=== PATIENT | female | born 1945 | race Caucasian/White ===

== ENCOUNTER 2016-12-12 12:02 | Inpatient (IN) | payer MEDICARE, MEDICAID ==
[~2016-12-12] VITALS: Ht 165.1 cm; Wt 80.7 kg
[2016-12-12] VITALS (9 sets, daily range): BP systolic 136–164; BP diastolic 69–83
[~2016-12-12 12:02] MED LIST: CIPRO500 MG PO; IBUPROFEN600 MG ORAL; NORCO 5-325 TA1 EACH ORAL; NORCO 5-325 TA1 EACH PO; PHENAZOPYRIDIN100 MG PO; UNOBMED
[2016-12-12] MEDS ORDERED: OMEPRAZOLE20 M2 ORAL (12:23)
[2016-12-12] MEDS ORDERED: SIMVASTATIN40 MG ORAL (12:23)
[2016-12-12] MEDS ORDERED: DYRENIUM100 MG PO (12:23)
[2016-12-12] MEDS ORDERED: TUMS500 MG ORAL (12:23)
[2016-12-12] MEDS ORDERED: METOPROLOL SUC100 MG ORAL (12:23)
[2016-12-12 12:40] LABS: BASOPHILS % (AUTO) 1.2 % (0.0-2.0); EOSINOPHILS % (AUTO) 1.5 % (0.0-3.0); LYMPHOCYTES % (AUTO) 30.5 % (20.0-45.0); MEAN CORPUSCULAR HEMOGLOBIN 30.8 PG (27.0-31.0); MEAN CORPUSCULAR HGB CONC 32.9 G/DL (32.0-36.0); MEAN CORPUSCULAR VOLUME 94 FL (80-99); MEAN PLATELET VOLUME 9.9 FL (6.5-10.1); MONOCYTES % (AUTO) 10.2 % (1.0-10.0); NEUTROPHILS % (AUTO) 56.6 % (45.0-75.0); PLATELET COUNT 217 K/UL (150-450); RED BLOOD COUNT 4.82 M/UL (4.20-5.40); RED CELL DISTRIBUTION WIDTH 11.7 % (11.6-14.8); WHITE BLOOD COUNT 8.5 K/UL (4.8-10.8)
[2016-12-12 12:52] LABS: ALANINE AMINOTRANSFERASE 21 U/L (3-33); ALBUMIN/GLOBULIN RATIO 1.4 (1.0-2.7); ANION GAP 16 (5-15); ASPARTATE AMINO TRANSFERASE 22 U/L (5-40); CALCIUM 9.2 mg/dL (8.6-10.2); CARBON DIOXIDE 26 mEQ/L (20-30); CHLORIDE 95 mEQ/L (98-107); CHOLESTEROL 225 mg/dL (< 200); CHOLESTEROL/HDL RATIO 6.8 (3.3-4.4); CREATININE 1.1 mg/dL (0.5-0.9); HEMOLYSIS 9; LDL CHOLESTEROL (CALC.) 120 mg/dL (60-99); POTASSIUM 3.7 mEQ/L (3.4-4.9); SODIUM 137 mEQ/L (135-145); TOTAL PROTEIN 6.9 g/dL (6.6-8.7)
[2016-12-12 14:14] LABS: APPEARANCE,URINE CLEAR; KETONES,URINE NEGATIVE (NEGATIVE); LEUKOCYTE ESTERASE ,URINE NEGATIVE (NEGATIVE); NITRITE,URINE NEGATIVE (NEGATIVE); PH,URINE 6.5 (4.5-8.0); PROTEIN,URINE NEGATIVE (NEGATIVE); UROBILINOGEN,URINE NORMAL MG/DL (0.0-1.0)
--- NOTE | 2016-12-12 14:30 | Emergency Room Report ---
History of Present Illness General Chief Complaint: Stroke Symptoms Source: Patient Present Illness HPI 71-year-old woman with a history of hypertension, high cholesterol, hepatitis C , with treatment and fatty liver. No diabetes, no history of heart disease or history of CVA. Patient reports that sudden onset at home she had right-sided numbness, this included her face, arm, torso and leg. She also had significant dizziness. No ringing in her ears no pain in her ears reported. She denied chest pain, shortness of breath or nausea or vomiting. She actually drove herself to the ER. Her primary doctor is located at [facility], she takes medications for high blood pressure and states she is compliant. No history of stroke or TIA, no history of carotid stenosis, a history of atrial fibrillation or irregular heart rate. Patient denies chest pain, or neck or back pain. Allergies: Coded Allergies: No Known Allergies (Unverified , 11/20/12) Patient History Past Medical History: see triage record Social History: Denies: alcohol use, drug use, smoking Now: No Immunizations: UTD Reviewed Nursing Documentation: PMH: Agreed Nursing Documentation-PMH Past Medical History: No History, Except For Hx Hypertension: Yes Hx Gastrointestinal Problems: Yes - Hepatitis C Review of Systems Cardiovascular: Denies: chest pain Neurological: Reports: dizziness, numbness, paresthesia, Denies: focal weakness , headache, seizure, syncope, tingling, tremors All Other Systems: negative except mentioned in HPI Physical Exam Vital Signs Date Time Temp Pulse Resp B/P Pulse Ox O2 Delivery O2 Flow Rate FiO2 12/12/16 12:12 97.5 76 16 160/83 97 Room Air Sp02 EP Interpretation: reviewed, normal General Appearance: normal inspection, well appearing, no apparent distress, alert Head: atraumatic Eyes: bilateral eye normal inspection ENT: normal ENT inspection, hearing grossly normal, normal voice Neck: normal inspection, full range of motion, supple, no bony tend Respiratory: normal inspection, lungs clear, normal breath sounds, no respiratory distress, no retraction, no wheezing Cardiovascular #1: regular rate, rhythm, no edema Gastrointestinal: normal inspection, normal bowel sounds, non tender, soft, no guarding, no hernia Genitourinary: no CVA tenderness Musculoskeletal: normal inspection, back normal, normal range of motion Neurologic: normal inspection, alert, oriented x3, responsive, 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 With consistent dizziness, review of the patient's overall exam does not show nystagmus but there is some degree of possible TM irritation of the left ear. An acute MRI of the brain does not reveal obvious stroke. And initial laboratory examination is generally unremarkable except for high cholesterol. She does have risk factors to include hypertension and high cholesterol and I believe a TIA still a possibility. Patient probably should be admitted for continued observation, carotid evaluation and further workup and she'll receive aspirin as well as a statin in the ER. The patient's primary doctor's for seizures and no contact them, we have 30 page 1 center pending a call back. But at this time I believe she's not having an acute stroke but no bulging event could always occur. Patient will be admitted to telemetry service here or transferred to [facility] if the primary doctor contacts us. The patient's orthostatics did not demonstrate a change in blood pressure or hydrated but the patient was dizzy on standing. I spoke with pts automobile brake bonder pcp, dr. Patel, who agrees with admission for TIA, but there is no available bed a [facility] at this time. I spoke with family and provided the option of following up with pcp tomorrow, or admission to [facility] for additional work up. Dr. Damon was notified and will admit the patient for futher evaluation. Pt received asa and statin in the ED. Review of labs shows only mild elevation in cholesterol, normal electrolytes and no sign of UTI. Laboratory Tests Test 12/12/16 12:04 12/12/16 12:10 12/12/16 13:47 White Blood Count 8.5 K/UL (4.8-10.8) Red Blood Count 4.82 M/UL (4.20-5.40) Hemoglobin 14.8 G/DL (12.0-16.0) Hematocrit 45.2 % (37.0-47.0) Mean Corpuscular Volume 94 FL (80-99) Mean Corpuscular Hemoglobin 30.8 PG (27.0-31.0) Mean Corpuscular Hemoglobin Concent 32.9 G/DL (32.0-36.0) Red Cell Distribution Width 11.7 % (11.6-14.8) Platelet Count 217 K/UL (150-450) Mean Platelet Volume 9.9 FL (6.5-10.1) Neutrophils (%) (Auto) 56.6 % (45.0-75.0) Lymphocytes (%) (Auto) 30.5 % (20.0-45.0) Monocytes (%) (Auto) 10.2 % (1.0-10.0) H Eosinophils (%) (Auto) 1.5 % (0.0-3.0) Basophils (%) (Auto) 1.2 % (0.0-2.0) Prothrombin Time 10.0 SEC (9.30-11.50) Prothromb Time International Ratio 1.0 (0.9-1.1) Activated Partial Thromboplast Time 30 SEC (23-33) Sodium Level 137 mEQ/L (135-145) Potassium Level 3.7 mEQ/L (3.4-4.9) Chloride Level 95 mEQ/L (98-107) L Carbon Dioxide Level 26 mEQ/L (20-30) Anion Gap 16 (5-15) H Blood Urea Nitrogen 19 mg/dL (7-23) Creatinine 1.1 mg/dL (0.5-0.9) H Estimat Glomerular Filtration Rate mL/min (>60) Glucose Level 115 mg/dL (74-106) H Calcium Level 9.2 mg/dL (8.6-10.2) Total Bilirubin 0.4 mg/dL (0.0-1.2) Aspartate Amino Transf (AST/SGOT) 22 U/L (5-40) Alanine Aminotransferase (ALT/SGPT) 21 U/L (3-33) Alkaline Phosphatase 52 U/L (35-104) Total Protein 6.9 g/dL (6.6-8.7) Albumin 4.1 g/dL (3.5-5.2) Globulin 2.8 g/dL Albumin/Globulin Ratio 1.4 (1.0-2.7) Triglycerides Level 360 mg/dL (< 150) H Cholesterol Level 225 mg/dL (< 200) H LDL Cholesterol 120 mg/dL (60-99) H HDL Cholesterol 33 mg/dL (> 60) Cholesterol/HDL Ratio 6.8 (3.3-4.4) H Urine Color Pale yellow Urine Appearance Clear Urine pH 6.5 (4.5-8.0) Urine Specific [place] 1.010 (1.005-1.035) Urine Protein Negative (NEGATIVE) Urine Glucose (UA) Negative (NEGATIVE) Urine Ketones Negative (NEGATIVE) Urine Occult Blood Negative (NEGATIVE) Urine Nitrite Negative (NEGATIVE) Urine Bilirubin Negative (NEGATIVE) Urine Urobilinogen Normal MG/DL (0.0-1.0) Urine Leukocyte Esterase Negative (NEGATIVE) EKG Diagnostic Results EKG Time: 13:08 EP Interpretation: normal sinus rhythm, normal ecg, rate 65 Rate: normal Rhythm: NSR ST Segments: no acute changes ASA given to the pt in ED: Yes Rhythm Strip Diag. Results Rhythm Strip Time: 13:20 EP Interpretation: yes Rate: 70 Rhythm: NSR, no PVC's, no ectopy CT/MRI/US Diagnostic Results CT/MRI/US Diagnostic Results : Imaging Test Ordered: MRI brain w.o contrast Impression No mass, bleeding, sign of stroke. age appropriate atrophy was noted. Reevaluation Time: 14:30 Last Vital Signs Date Time Temp Pulse Resp B/P Pulse Ox O2 Delivery O2 Flow Rate FiO2 12/12/16 13:30 68 16 143/79 98 Room Air 12/12/16 12:12 97.5 Status: improved Disposition: ADMITTED INPATIENT Admit Decision Time: 14:22 Condition: Serious Referrals: NON PHYSICIAN (PCP) Perez Hess MD Dec 12, 2016 14:30
--- NOTE | 2016-12-12 19:11 | Consultation ---
Consult Note Consult Note NEUROLOGY CONSULTATION: Full note dictated #[id number] 71 y/o, RH, CF with PH of HTN and DL who was functioning well until this morning when she felt dizzy and then her entire right body felt numb. Since then she has had multiple episodes of right body numbness. ON EXAM: Problems with recent and remote memory. Subjective altered sensation over entire right body. MRI of brain normal. IMPRESSION: Possible left brain stroke with residual right body dysesthesias. REC: BP control. Lipid control Plavix 75 mg q day Carotid duplex Cardiac monitoring. Observe. Gabe Rolle M.D., M.S.P.GABE KRISHNAMURTHY Dec 12, 2016 19:11
[2016-12-12 21:26] LABS: HEMOGLOBIN A1C 5.6 % (< 6.0)
--- NOTE | 2016-12-12 22:29 | Consultation ---
DATE OF CONSULTATION: 12/12/2016 NEUROLOGY CONSULTATION CONSULTING PHYSICIAN: Aurelio Rolle M.D. REQUESTING PHYSICIAN: Chel Lowery M.D. HISTORY: Ms. Darleen Argueta is a 71-year-old, right-handed lady, who does have a past history of hypertension, dyslipidemia, and Hepatitis-C. She was functioning relatively well until the morning of 12/12/16 when she was in the garden and felt dizzy. Then, her entire right body felt numb. She was quite uncomfortable from this and as a result of that, presented to the [facility] Emergency Room. Since then, she has had multiple episodes of the right body feeling numb and these episodes of numbness usually lasts from a few minutes to 30 minutes at a time. She denies any associated weakness. When she sits, stands, or tries to walk she does feel a little dizzy for a few seconds and then the dizziness seems to go away. She denies any similar symptoms in the past. PAST MEDICAL HISTORY: Significant for hypertension, dyslipidemia, and hepatitis C, which has been treated. FAMILY HISTORY: Mother of a heart attack and stroke. PERSONAL HISTORY: Home: She lives alone. 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 Habits: She smoked for approximately 20 years in the past, but stopped smoking numerous years ago. She used to drink in excess in the past, but stopped drinking numerous years ago. There is no history of any illicit drug use. PRESENT MEDICATIONS: Include aspirin 81 mg daily, Tylenol, and she got a single dose of Lipitor in the emergency room. PHYSICAL EXAMINATION: GENERAL: She is a well-developed, well-nourished, slightly obese, lady, lying in bed, in no acute distress. VITAL SIGNS: Pulse 64 per minute and regular, blood pressure 136/83 mmHg, respirations 21 per minute, and temperature 97.7 degrees Fahrenheit. HEAD: Normocephalic and atraumatic. NECK: No neck rigidity was observed. EENT EXAMINATION: Benign. NEUROLOGICAL EXAMINATION: MENTAL STATUS EXAMINATION: He was alert and awake. She was oriented to person, place, and time. She was able to recall 3/3 words immediately, but could only remember 2/3 words in 1 minute and 3 minutes even on the second trial. She was able to remember presidents Trump and Obama, but could not remember presidents prior to that. Her mathematical skills were fairly good. Her visuospatial function was impaired. SPEECH: She had no dysarthria. LANGUAGE: She had no aphasia. CRANIAL NERVE EXAMINATION: II: The visual hampton were intact to confrontation testing. III, IV & : The external ocular movements were full and the pupils 3 mm in diameter equal, round, regular and reactive to light. V: The temporales, masseters, and pterygoids function normally. She was able to discern pinprick and light touch, but complained of a subjective alteration over entire right face. VII: She had normal facial expressions and no facial asymmetry. VIII: She was able to hear well bilaterally and had no nystagmus. IX: The palate moved symmetrically on phonation. X: She had no hoarseness of voice. XI: The sternocleidomastoids and trapezii functioned normally. XII: The tongue was in the midline without any fasciculations or atrophy. MOTOR SYSTEM: The tone was normal in all four extremities. Examination of muscle mass revealed no focal wasting. Examination of power revealed grade 5/5 power in all muscle groups tested. SENSORY EXAMINATION: She complained of altered sensations over entire right body. She was, however, able to discern between pinprick and light touch. REFLEXES: 2+ and bilaterally symmetrical at the biceps, triceps, brachioradialis, and knees. 0 at both ankles. The plantar responses were flexor bilaterally. COORDINATION: She performed well on [id number]-[id number]-cnmo and mpdj-lg-pxbv testing. STANCE: She stood up with support. GAIT: She walked well with support. DIAGNOSTIC IMPRESSION: 1. Ms. Darleen Argueta is a 71-year-old, right-handed, lady, who does have a past history of hypertension and dyslipidemia, who was taking medicines for hypertension, but not dyslipidemia. On the morning of 12/12/2016 she felt dizzy and then her entire right body felt numb. She was evaluated in the [facility] emergency room for this problem. Since then, she has had multiple episodes of right body numbness, which last for a few minutes to 30 minutes at a time. 2. On neurological examination, at this time, she does have problems with recent and remote memory, and a subjective alteration to pinprick and light touch over entire right body. 3. The MRI scan of the brain without contrast reveals atrophy and deep white matter disease, but no acute pathology. 4. The patient's history and neurological examination are most compatible with a possible left brain cerebrovascular event with residual right body altered sensation and episodic dysesthesias. RECOMMENDATIONS: 1. Agree with management thus far. 2. The patient should be worked up thoroughly for other treatable causes of cerebrovascular disease. 3. Her blood pressure should be well controlled with permitting. 4. She should be started on a statin on a consistent basis for treatment of dyslipidemia. 5. She will be started on Plavix 75 mg daily for stroke prophylaxis. 6. A cerebrovascular noninvasive profile should be performed to evaluate the patient for hemodynamically significant carotid disease. 7. The patient's heart should be monitored for the next 24 hours or so to evaluate her for a cardiac arrhythmia. 8. The patient should be observed closely and depending on how she fares over the next day or so further recommendations will be given. Thank you for entrusting me with the care of Ms. Argueta. I shall follow her with you. Aurelio Rolle M.D., M.S.P.H. DR: TARSHA JOB#: [id number] MTDFroilan
[2016-12-13 00:26] VITALS: BP 152/84
[2016-12-13 04:23] VITALS: BP 137/78
[2016-12-13 07:49] VITALS: BP 150/80
--- NOTE | 2016-12-13 07:55 | Diagnostic Imaging Report ---
Indication: Strokelike symptoms. Left candida-comparison is Technique: The head was imaged in a 1.5 Faviola magnet. Sequences obtained include sagittal and axial T1 FLAIR, axial T2 fast spin echo with fat saturation, axial T2 FLAIR, diffusion and ADC map. Comparison: None Findings: There is mild prominence of the sulci, ventricles, and basal cisterns consistent with atrophy. Mild, nonspecific T2 hyperintensity noted within white matter. This may be due to chronic small vessel disease. There is no restricted diffusion. Steven-white differentiation is normal. There is no mass effect, midline shift, edema, or hemorrhage. There are no abnormal extra-axial or intra-axial fluid collections. The corpus callosum and sella are unremarkable. The brainstem and cerebellum are unremarkable. Bone marrow signal within the visualized osseous structures appears age appropriate and unremarkable otherwise. Impression: No acute intracranial findings. Mild atrophy and evidence of chronic small vessel disease involving white matter tracts.
[2016-12-13] MEDS: Aspirin Baby 81mg ORAL SCH (08:56)
[2016-12-13 12:36] VITALS: BP 145/77
--- NOTE | 2016-12-13 15:51 | Neurology Progress Note ---
Interim History Interim History Interim History Ms. Argueta feels better generally. She has had no vertigo. She still has altered sensations over her right body but has had no further episodes of increased altered sensations. The strength is good. The memory is stable. She denies any new new neurologic symptoms. Review of Systems Neuro Review of Systems Benign. Objective Physical Exam Last Vital Signs Date Time Temp Pulse Resp B/P Pulse Ox O2 Delivery O2 Flow Rate FiO2 12/13/16 12:36 97.9 65 18 145/77 95 Room Air Laboratory Tests Test 12/12/16 21:00 12/13/16 06:05 Erythrocyte Sedimentation Rate 23 MM/HR (0-30) Hemoglobin A1c 5.6 % (< 6.0) Vitamin B12 Level 308 pg/mL (211-946) Vitamin D 25-Hydroxy Pending 25-Hydroxy Vitamin D2 Pending 25-Hydroxy Vitamin D3 Pending Folate Pending Rapid Plasma Reagin Pending Neurologic Exam Objective PHYSICAL EXAMINATION: GENERAL: She is a well-developed, well-nourished, slightly obese, lady, lying in bed, in no acute distress. HEAD: Normocephalic and atraumatic. NECK: No neck rigidity was observed. EENT EXAMINATION: Benign. NEUROLOGICAL EXAMINATION: MENTAL STATUS EXAMINATION: He was alert and awake. She was oriented to person, place, and time. She was able to recall 3/3 words immediately, but could only remember 2/3 words in 1 minute and 3 minutes even on the second trial. She was able to remember presidents Trump and Obama, but could not remember presidents prior to that. Her mathematical skills were fairly good. Her visuospatial function was impaired. SPEECH: She had no dysarthria. LANGUAGE: She had no aphasia. CRANIAL NERVE EXAMINATION: II: The visual hampton were intact to confrontation testing. III, IV & : The external ocular movements were full and the pupils 3 mm in diameter equal, round, regular and reactive to light. V: The temporales, masseters, and pterygoids function normally. She was able to discern pinprick and light touch, but complained of a subjective alteration over entire right face. VII: She had normal facial expressions and no facial asymmetry. VIII: She was able to hear well bilaterally and had no nystagmus. IX: The palate moved symmetrically on phonation. X: She had no hoarseness of voice. XI: The sternocleidomastoids and trapezii functioned normally. XII: The tongue was in the midline without any fasciculations or atrophy. MOTOR SYSTEM: The tone was normal in all four extremities. Examination of muscle mass revealed no focal wasting. Examination of power revealed grade 5/5 power in all muscle groups tested. SENSORY EXAMINATION: She complained of altered sensations over entire right body. She was, however, able to discern between pinprick and light touch. REFLEXES: 2+ and bilaterally symmetrical at the biceps, triceps, brachioradialis , and knees. 0 at both ankles. The plantar responses were flexor bilaterally. COORDINATION: She performed well on pmllfo-cp-imez and qasa-ei-fbob testing. STANCE: She stood up with support. GAIT: She walked well with support. Impression/Recommendations Diagnostic Impression 1. Ms. Darleen Argueta is a 71-year-old, right-handed, lady, who does have a past history of hypertension and dyslipidemia, who was taking medicines for hypertension, but not dyslipidemia. On the morning of 12/12/2016 she felt dizzy and then her entire right body felt numb. She was evaluated in the [facility] emergency room for this problem. Since then, she has had multiple episodes of right body numbness, which last for a few minutes to 30 minutes at a time. 2. She feels better today. She still has a constant subjective alteration in sensations over her right body but no episodes of increased right sided discomfort. 3. On neurological examination, at this time, she does have problems with recent and remote memory, and a subjective alteration to pinprick and light touch over entire right body. 4. The MRI scan of the brain without contrast reveals atrophy and deep white matter disease, but no acute pathology. 5. Her B 12 level is low at 308. 6. Her carotid duplex has been done but the results are still pending. 7. The patient's history and neurological examination are most compatible with a possible left brain cerebrovascular event with residual right body altered sensation and episodic dysesthesias. 8. She is also vitamin B 12 deficient. Recommendations 1. Continue present management. 2. Vitamin B12 - 1000 mcg SC daily x 3 doses and then q month. 3. Her blood pressure should be well controlled and kept in the <130/90 range. 4. She should be started on a statin on a consistent basis for treatment of dyslipidemia. 5. Continue Plavix 75 mg daily for stroke prophylaxis. 6. Await results of cerebrovascular noninvasive profile to evaluate the patient for hemodynamically significant carotid disease. 7. Keep active. Gabe Rolle M.D., M.S.P.Angely. GABE ROLLE Dec 13, 2016 15:51
[2016-12-13 16:00] VITALS: BP 111/52
[2016-12-13] MEDS: Vitamin B12 1000mcg/ml Inj SUBQ SCH (18:23)
[2016-12-13 20:00] VITALS: BP 148/77
--- NOTE | 2016-12-13 20:58 | History and Physical Report ---
DATE OF ADMISSION: 12/12/2016 REASON FOR ADMISSION: TIA. HISTORY OF PRESENT ILLNESS: The patient complains of numbness in the right side since yesterday, ataxia, visual blurring, headache, paresthesia in the fingers, and headache x1 day. Everything started yesterday. The patient has been admitted with TIA, rule out CVA. The patient denies nausea, vomiting, or diarrhea. No fever or chills. No abdominal pain. No shortness of breath. No cough. PAST MEDICAL HISTORY: Significant for history of alcohol abuse, history of smoking, GERD, hyperlipidemia, and hypertension. MEDICATIONS: Simvastatin, triamterene, omeprazole, and metoprolol. SOCIAL HISTORY: History of smoking. History of alcohol abuse. No history of drug abuse. FAMILY HISTORY: Noncontributory. REVIEW OF SYSTEMS: HEENT: Denies headache. Respiratory: Denies shortness of breath. Denies cough. Cardiovascular: Denies chest pain. Denies orthopnea. Gastrointestinal: Denies nausea, vomiting, or diarrhea. Extremities: Denies pain. Central Nervous System: Has paresthesia in the right side x1 day, headache, and visual blurriness x1 day. PHYSICAL EXAMINATION: VITAL SIGNS: Temperature 98.6 degrees, pulse is 88, and blood pressure 152/84. HEENT: PERRLA. NECK: Supple. No lymphadenopathy. CHEST: Clear to auscultation. GASTROINTESTINAL: Soft, nontender, and nondistended. No organomegaly. EXTREMITIES: No edema. Moving all four extremities. NEUROLOGIC: Sensory intact to light touch. Reflexes equal on both sides. Motor 5/5 in all extremities. LABORATORY DATA: WBC of 8.5, hemoglobin 14.8, and platelets 217,000. Sodium 137, potassium 3.7, BUN 19, creatinine 1.9, and glucose of 115. LDL 120. ASSESSMENT: 1. Hyperlipidemia. 2. Transient ischemic attack, rule out cerebrovascular accident. 3. Dehydration. PLAN: I have asked Dr. Villeda, , and Dr. Alcantar to see the patient to rule out UTI as well as continue the treatment of dehydration and TIA/stroke. Chel Lowery M.D. DR: ALEXIS JOB#: [id number] CC:
--- NOTE | 2016-12-13 23:23 | Cardiology Report ---
APPROVED REPORT EKG Measurement Heart [id number] Normal sinus rhythm Normal ECG
[2016-12-14 00:05] VITALS: BP 144/83
[2016-12-14 04:31] VITALS: BP 131/78
[2016-12-14 08:25] VITALS: BP 153/89
[2016-12-14] MEDS: Aspirin Baby 81mg ORAL SCH (08:41)
[2016-12-14] MEDS: Vitamin B12 1000mcg/ml Inj SUBQ SCH (08:41)
--- NOTE | 2016-12-14 08:46 | Cardiology Report ---
APPROVED REPORT EXAM: Two-dimensional and M-mode echocardiogram with Doppler and color Doppler. INDICATION CVA M-Mode DIMENSIONS IVSd0.8 (0.7-1.1cm)Left Atrium (MM)2.9 (1.6-4.0cm) LVDd4.5 (3.5-5.6cm)Aortic Root2.5 (2.0-3.7cm) PWd0.7 (0.7-1.1cm)Aortic Cusp Exc.1.8 (1.5-2.0cm) LVDs2.7 (2.5-4.0cm) PWs0.7 cm Technically difficult study due to poor acoustic windows. Normal left ventricular chamber size, systolic function and wall motion. Left ventricular ejection fraction estimated to be 55-60 %. No evidence of left ventricular hypertrophy. No evidence of pericardial fat or effusion. All other cardiac chamber sizes are within normal limits. Focal aortic valve sclerosis with adequate cusp excursion Thickened mitral valve leaflets with normal excursion. Mild mitral annulus and aortic root calcification. Pulmonic valve not well visualized. Normal tricuspid valve structure. IVC is normal in size with physiologic collapse. A color flow and spectral Doppler study was performed and revealed: Trace aortic regurgitation. Mild mitral regurgitation. Left ventricular diastolic dysfunction grade 1. Mild tricuspid regurgitation. Tricuspid systolic velocities suggests peak right ventricular systolic pressure of 23 mmHg
[2016-12-14 11:32] LABS: BASOPHILS % (AUTO) 0.9 % (0.0-2.0); EOSINOPHILS % (AUTO) 1.4 % (0.0-3.0); LYMPHOCYTES % (AUTO) 23.6 % (20.0-45.0); MEAN CORPUSCULAR HGB CONC 33.1 G/DL (32.0-36.0); MEAN CORPUSCULAR VOLUME 94 FL (80-99); MEAN PLATELET VOLUME 9.9 FL (6.5-10.1); MONOCYTES % (AUTO) 8.8 % (1.0-10.0); NEUTROPHILS % (AUTO) 65.3 % (45.0-75.0); PLATELET COUNT 165 K/UL (150-450); RED BLOOD COUNT 4.41 M/UL (4.20-5.40); RED CELL DISTRIBUTION WIDTH 11.9 % (11.6-14.8); WHITE BLOOD COUNT 6.1 K/UL (4.8-10.8)
[2016-12-14 11:49] LABS: ALANINE AMINOTRANSFERASE 17 U/L (3-33); ALBUMIN/GLOBULIN RATIO 1.5 (1.0-2.7); ANION GAP 13 (5-15); ASPARTATE AMINO TRANSFERASE 18 U/L (5-40); CALCIUM 8.9 mg/dL (8.6-10.2); CARBON DIOXIDE 27 mEQ/L (20-30); CHLORIDE 101 mEQ/L (98-107); CHOLESTEROL 189 mg/dL (< 200); CHOLESTEROL/HDL RATIO 5.6 (3.3-4.4); CREATININE 0.8 mg/dL (0.5-0.9); CRP QUANT 0.4 mg/dL (< 0.5); HEMOLYSIS 7; LDL CHOLESTEROL (CALC.) 120 mg/dL (60-99); MAGNESIUM 1.9 mg/dL (1.7-2.5); PHOSPHORUS 2.2 mg/dL (2.5-4.8); POTASSIUM 3.5 mEQ/L (3.4-4.9); SODIUM 141 mEQ/L (135-145); TOTAL PROTEIN 6.4 g/dL (6.6-8.7); URIC ACID 6.2 mg/dL (3.0-7.5)
[2016-12-14 11:51] VITALS: BP 147/75
--- NOTE | 2016-12-14 12:27 | Diagnostic Imaging Report ---
APPROVED REPORT CPT Code: 95474 Vascular Symptoms CVA/TIA: Doppler Spectral Velocity Analysis RightLeft BILATERAL: CCA/BULB - Imaging reveals irregular, minimal plaque(5%) in both carotid carotid arteries. The Doppler spectral flow analysis is within normal limits throughout the internal and external carotid arteries. VERTEBRALS - Imaging reveals both vertebral arteries to be patent, without evidence of stenosis or steal.
--- NOTE | 2016-12-14 12:28 | Consultation ---
Consult Note Consult Note asked to eval for BP management- 71 y old female: 1. Ms. Darleen Argueta is a 71-year-old, right-handed, lady, who does have a past history of hypertension and dyslipidemia, who was taking medicines for hypertension, but not dyslipidemia. On the morning of 12/12/2016 she felt dizzy and then her entire right body felt numb. She was evaluated in the [facility] emergency room for this problem. Since then, she has had multiple episodes of right body numbness, which last for a few minutes to 30 minutes at a time. 2. She feels better today. She still has a constant subjective alteration in sensations over her right body but no episodes of increased right sided discomfort. 3. On neurological examination, at this time, she does have problems with recent and remote memory, and a subjective alteration to pinprick and light touch over entire right body. 4. The MRI scan of the brain without contrast reveals atrophy and deep white matter disease, but no acute pathology. 5. Her B 12 level is low at 308. 6. Her carotid duplex has been done but the results are still pending. 7. The patient's history and neurological examination are most compatible with a possible left brain cerebrovascular event with residual right body altered sensation and episodic dysesthesias. 8. She is also vitamin B 12 deficient. Patient interviewed, discussed with daughter - data reviewed Assessment/Plan Status: HTN High Cholestrol Evidence of left brain cereberal event Sugg: Norvasc 5 BID Up dose Lipitor to 20 mg QHS B12 per neuro EMELY JETER Dec 14, 2016 12:28
[2016-12-14] MEDS: Phospha 250 Neutral tab ORAL SCH ×2 (13:41→17:54)
--- NOTE | 2016-12-14 14:39 | General Progress Note ---
Assessment/Plan Problem List: (1) Dizziness ICD Codes: R42 - Dizziness and giddiness SNOMED: 746445061, 182120793 (2) Stroke-like symptoms ICD Codes: R29.90 - Unspecified symptoms and signs involving the nervous system SNOMED: 679183821, 824423719 (3) Stroke-like episode ICD Codes: I63.9 - Cerebral infarction, unspecified SNOMED: 359251738 Status: progressing Assessment/Plan tia moniter for progression to cva still has elevated bp Subjective Allergies: Coded Allergies: No Known Allergies (Unverified , 11/20/12) Subjective tingling Objective Last 24 Hour Vital Signs Date Time Temp Pulse Resp B/P Pulse Ox O2 Delivery O2 Flow Rate FiO2 12/14/16 12:00 63 12/14/16 11:51 97.7 73 18 147/75 98 Room Air 12/14/16 10:46 85 169/80 12/14/16 08:25 97.5 65 18 153/89 96 Room Air 12/14/16 08:00 68 12/14/16 04:31 97.5 81 19 131/78 98 Room Air 12/14/16 04:00 64 12/14/16 00:05 98.1 72 18 144/83 98 Room Air 12/14/16 00:00 63 12/13/16 20:00 98.1 67 20 148/77 97 Room Air 12/13/16 20:00 72 12/13/16 16:00 70 12/13/16 16:00 98.1 67 20 111/52 97 Room Air Intake and Output 12/13/16 12/14/16 19:00 07:00 Intake Total 750 ml 260 ml Balance 750 ml 260 ml Intake Oral 240 ml 260 ml IV Total 510 ml # Voids 2 1 Laboratory Tests 12/14/16 10:50: White Blood Count 6.1, Red Blood Count 4.41, Hemoglobin 13.7, Hematocrit 41.3, Mean Corpuscular Volume 94, Mean Corpuscular Hemoglobin 31.0, Mean Corpuscular Hemoglobin Concent 33.1, Red Cell Distribution Width 11.9, Platelet Count 165, Mean Platelet Volume 9.9, Neutrophils (%) (Auto) 65.3, Lymphocytes (%) (Auto) 23.6, Monocytes (%) (Auto) 8.8, Eosinophils (%) (Auto) 1.4, Basophils (%) (Auto ) 0.9, Sodium Level 141, Potassium Level 3.5, Chloride Level 101, Carbon Dioxide Level 27, Anion Gap 13, Blood Urea Nitrogen 13, Creatinine 0.8, Estimat Glomerular Filtration Rate , Glucose Level 111H, Uric Acid 6.2, Calcium Level 8.9, Phosphorus Level 2.2L, Magnesium Level 1.9, Total Bilirubin 0.5, Gamma Glutamyl Transpeptidase 21, Aspartate Amino Transf (AST/SGOT) 18, Alanine Aminotransferase (ALT/SGPT) 17, Alkaline Phosphatase 45, Total Creatine Kinase 49, C-Reactive Protein, Quantitative 0.4, Pro-B-Type Natriuretic Peptide 170H, Total Protein 6.4L, Albumin 3.9, Globulin 2.5, Albumin/Globulin Ratio 1.5, Triglycerides Level 177H, Cholesterol Level 189, LDL Cholesterol 120H, HDL Cholesterol 34, Cholesterol/HDL Ratio 5.6H, Thyroid Stimulating Hormone (TSH) 2.430 Height (Feet): 5 Height (Inches): 5.00 Weight (Pounds): 178 Cardiovascular: normal rate Respiratory/Chest: lungs clear Abdomen: soft Chel Lowery MD Dec 14, 2016 14:39
[2016-12-14 16:00] VITALS: BP 148/73
[2016-12-14 20:00] VITALS: BP 143/79
--- NOTE | 2016-12-14 20:52 | Neurology Progress Note ---
Interim History Interim History Interim History Ms. Argueta feels better generally. Her blood pressures are still running high. This morning she had a fleeting episode of increased right body numbness associated with vertigo. She still has altered sensations over her face but not the right arm or leg. The strength is good. The memory is stable. She denies any new new neurologic symptoms. Review of Systems Neuro Review of Systems Benign. Objective Physical Exam Last Vital Signs Date Time Temp Pulse Resp B/P Pulse Ox O2 Delivery O2 Flow Rate FiO2 12/14/16 17:58 81 148/77 12/14/16 16:00 98.1 21 97 Room Air Laboratory Tests Test 12/14/16 10:50 White Blood Count 6.1 K/UL (4.8-10.8) Red Blood Count 4.41 M/UL (4.20-5.40) Hemoglobin 13.7 G/DL (12.0-16.0) Hematocrit 41.3 % (37.0-47.0) Mean Corpuscular Volume 94 FL (80-99) Mean Corpuscular Hemoglobin 31.0 PG (27.0-31.0) Mean Corpuscular Hemoglobin Concent 33.1 G/DL (32.0-36.0) Red Cell Distribution Width 11.9 % (11.6-14.8) Platelet Count 165 K/UL (150-450) Mean Platelet Volume 9.9 FL (6.5-10.1) Neutrophils (%) (Auto) 65.3 % (45.0-75.0) Lymphocytes (%) (Auto) 23.6 % (20.0-45.0) Monocytes (%) (Auto) 8.8 % (1.0-10.0) Eosinophils (%) (Auto) 1.4 % (0.0-3.0) Basophils (%) (Auto) 0.9 % (0.0-2.0) Sodium Level 141 mEQ/L (135-145) Potassium Level 3.5 mEQ/L (3.4-4.9) Chloride Level 101 mEQ/L (98-107) Carbon Dioxide Level 27 mEQ/L (20-30) Anion Gap 13 (5-15) Blood Urea Nitrogen 13 mg/dL (7-23) Creatinine 0.8 mg/dL (0.5-0.9) Estimat Glomerular Filtration Rate mL/min (>60) Glucose Level 111 mg/dL (74-106) H Uric Acid 6.2 mg/dL (3.0-7.5) Calcium Level 8.9 mg/dL (8.6-10.2) Phosphorus Level 2.2 mg/dL (2.5-4.8) L Magnesium Level 1.9 mg/dL (1.7-2.5) Total Bilirubin 0.5 mg/dL (0.0-1.2) Gamma Glutamyl Transpeptidase 21 U/L (5-36) Aspartate Amino Transf (AST/SGOT) 18 U/L (5-40) Alanine Aminotransferase (ALT/SGPT) 17 U/L (3-33) Alkaline Phosphatase 45 U/L (35-104) Total Creatine Kinase 49 U/L (26-140) C-Reactive Protein, Quantitative 0.4 mg/dL (< 0.5) Pro-B-Type Natriuretic Peptide 170 pg/mL (0-125) H Total Protein 6.4 g/dL (6.6-8.7) L Albumin 3.9 g/dL (3.5-5.2) Globulin 2.5 g/dL Albumin/Globulin Ratio 1.5 (1.0-2.7) Triglycerides Level 177 mg/dL (< 150) H Cholesterol Level 189 mg/dL (< 200) LDL Cholesterol 120 mg/dL (60-99) H HDL Cholesterol 34 mg/dL (> 60) Cholesterol/HDL Ratio 5.6 (3.3-4.4) H Thyroid Stimulating Hormone (TSH) 2.430 uIU/mL (0.300-4.500) Neurologic Exam Objective PHYSICAL EXAMINATION: GENERAL: She is a well-developed, well-nourished, slightly obese, lady, lying in bed, in no acute distress. HEAD: Normocephalic and atraumatic. NECK: No neck rigidity was observed. EENT EXAMINATION: Benign. NEUROLOGICAL EXAMINATION: MENTAL STATUS EXAMINATION: He was alert and awake. She was oriented to person, place, and time. She was able to recall 3/3 words immediately, but could only remember 2/3 words in 1 minute and 3 minutes even on the second trial. She was able to remember presidents Trump and Obama, but could not remember presidents prior to that. Her mathematical skills were fairly good. Her visuospatial function was impaired. SPEECH: She had no dysarthria. LANGUAGE: She had no aphasia. CRANIAL NERVE EXAMINATION: II: The visual hampton were intact to confrontation testing. III, IV & : The external ocular movements were full and the pupils 3 mm in diameter equal, round, regular and reactive to light. V: The temporales, masseters, and pterygoids function normally. She was able to discern pinprick and light touch, but complained of a subjective alteration over entire right face. VII: She had normal facial expressions and no facial asymmetry. VIII: She was able to hear well bilaterally and had no nystagmus. IX: The palate moved symmetrically on phonation. X: She had no hoarseness of voice. XI: The sternocleidomastoids and trapezii functioned normally. XII: The tongue was in the midline without any fasciculations or atrophy. MOTOR SYSTEM: The tone was normal in all four extremities. Examination of muscle mass revealed no focal wasting. Examination of power revealed grade 5/5 power in all muscle groups tested. SENSORY EXAMINATION: She was able to discern between pinprick and light touch. She had no alteration of sensation over her right body. REFLEXES: 2+ and bilaterally symmetrical at the biceps, triceps, brachioradialis , and knees. 0 at both ankles. The plantar responses were flexor bilaterally. COORDINATION: She performed well on [id number] and [id number] testing. STANCE: She stood up with support. GAIT: She walked well with support. Impression/Recommendations Diagnostic Impression 1. Ms. Darleen Argueta is a 71-year-old, right-handed, lady, who does have a past history of hypertension and dyslipidemia, who was taking medicines for hypertension, but not dyslipidemia. On the morning of 12/12/2016 she felt dizzy and then her entire right body felt numb. She was evaluated in the [facility] emergency room for this problem. Since then, she has had multiple episodes of right body numbness, which last for a few minutes to 30 minutes at a time. 2. She feels much better now. She did have an episode of increased subjective alteration in sensations over her right body this morning. 3. On neurological examination, at this time, she does have problems with recent and remote memory, and a subjective alteration to pinprick and light touch over right face. 4. The MRI scan of the brain without contrast reveals atrophy and deep white matter disease, but no acute pathology. 5. Her B 12 level is low at 308. 6. Her carotid duplex reveals 5% bilateral ICA stenosis. 7. The patient's history and neurological examination are most compatible with a possible left brain cerebrovascular event with residual right body altered sensation and episodic dysesthesias. 8. She is also vitamin B 12 deficient. Recommendations 1. Continue present management. 2. Vitamin B12 - 1000 mcg SC daily x 3 doses and then q month. 3. Her blood pressure should be well controlled and kept in the <130/90 range. 4. Continue Lipitor for dyslipidemia. 5. Continue Plavix 75 mg daily for stroke prophylaxis. 6. Keep active. Gabe Rolle M.D., M.S.P.GABE KRISHNAMURTHY Dec 14, 2016 20:52
[2016-12-14] MEDS: Atorvastatin 20mg tab ORAL SCH (21:27)
[2016-12-15 00:35] VITALS: BP 117/63
[2016-12-15 04:20] VITALS: BP 124/77
[2016-12-15] MEDS: Phospha 250 Neutral tab ORAL SCH (08:19)
[2016-12-15] MEDS: Aspirin Baby 81mg ORAL SCH (08:19)
[2016-12-15] MEDS: Vitamin B12 1000mcg/ml Inj SUBQ SCH (08:22)
[2016-12-15 08:38] VITALS: BP 125/71
--- NOTE | 2016-12-15 09:24 | General Progress Note ---
Assessment/Plan Status: stable - from renal stand Assessment/Plan status: HTN High Cholestrol Evidence of left brain cereberal event Sugg: Norvasc 5 BID controlling BP Up dose Lipitor to 20 mg QHS B12 per neuro ? DC? Subjective ROS Limited/Unobtainable: No Constitutional: Reports: malaise Allergies: Coded Allergies: No Known Allergies (Unverified , 11/20/12) Objective Last 24 Hour Vital Signs Date Time Temp Pulse Resp B/P Pulse Ox O2 Delivery O2 Flow Rate FiO2 12/15/16 08:38 97.5 64 18 125/71 98 Room Air 12/15/16 08:21 64 125/71 12/15/16 04:20 98.6 72 19 124/77 94 Room Air 12/15/16 04:00 65 12/15/16 02:00 77 12/15/16 00:35 98.3 73 19 117/63 98 Room Air 12/14/16 20:00 98.1 79 21 143/79 96 Room Air 12/14/16 20:00 82 12/14/16 17:58 81 148/77 12/14/16 16:00 73 12/14/16 16:00 98.1 69 21 148/73 97 Room Air 12/14/16 12:00 63 12/14/16 11:51 97.7 73 18 147/75 98 Room Air 12/14/16 10:46 85 169/80 Intake and Output 12/14/16 12/15/16 19:00 07:00 Intake Total 240 ml 300 ml Balance 240 ml 300 ml Intake Oral 240 ml 300 ml # Voids 3 3 Laboratory Tests 12/14/16 10:50: White Blood Count 6.1, Red Blood Count 4.41, Hemoglobin 13.7, Hematocrit 41.3, Mean Corpuscular Volume 94, Mean Corpuscular Hemoglobin 31.0, Mean Corpuscular Hemoglobin Concent 33.1, Red Cell Distribution Width 11.9, Platelet Count 165, Mean Platelet Volume 9.9, Neutrophils (%) (Auto) 65.3, Lymphocytes (%) (Auto) 23.6, Monocytes (%) (Auto) 8.8, Eosinophils (%) (Auto) 1.4, Basophils (%) (Auto ) 0.9, Sodium Level 141, Potassium Level 3.5, Chloride Level 101, Carbon Dioxide Level 27, Anion Gap 13, Blood Urea Nitrogen 13, Creatinine 0.8, Estimat Glomerular Filtration Rate , Glucose Level 111H, Uric Acid 6.2, Calcium Level 8.9, Phosphorus Level 2.2L, Magnesium Level 1.9, Total Bilirubin 0.5, Gamma Glutamyl Transpeptidase 21, Aspartate Amino Transf (AST/SGOT) 18, Alanine Aminotransferase (ALT/SGPT) 17, Alkaline Phosphatase 45, Total Creatine Kinase 49, C-Reactive Protein, Quantitative 0.4, Pro-B-Type Natriuretic Peptide 170H, Total Protein 6.4L, Albumin 3.9, Globulin 2.5, Albumin/Globulin Ratio 1.5, Triglycerides Level 177H, Cholesterol Level 189, LDL Cholesterol 120H, HDL Cholesterol 34, Cholesterol/HDL Ratio 5.6H, Thyroid Stimulating Hormone (TSH) 2.430 Height (Feet): 5 Height (Inches): 5.00 Weight (Pounds): 178 General Appearance: no apparent distress Cardiovascular: normal rate Respiratory/Chest: lungs clear Abdomen: soft Objective physical exam not changed EMELY JETER Dec 15, 2016 09:24
[2016-12-15 11:39] VITALS: BP 121/68
--- NOTE | 2016-12-15 11:54 | General Progress Note ---
Assessment/Plan Problem List: (1) Dizziness ICD Codes: R42 - Dizziness and giddiness SNOMED: 989994564, 306817015 (2) Stroke-like symptoms ICD Codes: R29.90 - Unspecified symptoms and signs involving the nervous system SNOMED: 555612477, 492985003 (3) Stroke-like episode ICD Codes: I63.9 - Cerebral infarction, unspecified SNOMED: 347868890 Status: progressing Assessment/Plan spoke w daughter and she is also in agreement that patient needs to go to snf for pt ot and st will dc to snf tomrrow moniter for progression to cva still has elevated bp Subjective Allergies: Coded Allergies: No Known Allergies (Unverified , 11/20/12) Subjective tingling Objective Last 24 Hour Vital Signs Date Time Temp Pulse Resp B/P Pulse Ox O2 Delivery O2 Flow Rate FiO2 12/15/16 11:39 97.3 77 18 121/68 96 Room Air 12/15/16 08:38 97.5 64 18 125/71 98 Room Air 12/15/16 08:21 64 125/71 12/15/16 08:00 75 12/15/16 04:20 98.6 72 19 124/77 94 Room Air 12/15/16 04:00 65 12/15/16 02:00 77 12/15/16 00:35 98.3 73 19 117/63 98 Room Air 12/14/16 20:00 98.1 79 21 143/79 96 Room Air 12/14/16 20:00 82 12/14/16 17:58 81 148/77 12/14/16 16:00 73 12/14/16 16:00 98.1 69 21 148/73 97 Room Air 12/14/16 12:00 63 Intake and Output 12/14/16 12/15/16 19:00 07:00 Intake Total 240 ml 300 ml Balance 240 ml 300 ml Intake Oral 240 ml 300 ml # Voids 3 3 Height (Feet): 5 Height (Inches): 5.00 Weight (Pounds): 178 Cardiovascular: normal rate Abdomen: soft Chel Lowery MD Dec 15, 2016 11:54
--- NOTE | 2016-12-15 15:31 | Neurology Progress Note ---
Interim History Interim History Interim History Ms. Argueta feels better. Her blood pressures are controlled. She has had no further episodes of increased right body numbness or vertigo. She still has altered sensations over her right face, arm and leg. The strength is good. The memory is stable. She denies any new new neurologic symptoms. Review of Systems Neuro Review of Systems Benign. Objective Physical Exam Last Vital Signs Date Time Temp Pulse Resp B/P Pulse Ox O2 Delivery O2 Flow Rate FiO2 12/15/16 12:00 76 12/15/16 11:39 97.3 18 121/68 96 Room Air Neurologic Exam Objective PHYSICAL EXAMINATION: GENERAL: She is a well-developed, well-nourished, slightly obese, lady, sitting up in bed, in no acute distress. HEAD: Normocephalic and atraumatic. NECK: No neck rigidity was observed. EENT EXAMINATION: Benign. NEUROLOGICAL EXAMINATION: MENTAL STATUS EXAMINATION: He was alert and awake. She was oriented to person, place, and time. She was able to recall 3/3 words immediately, but could only remember 2/3 words in 1 minute and 3 minutes even on the second trial. She was able to remember presidents Trump and Obama, but could not remember presidents prior to that. Her mathematical skills were fairly good. Her visuospatial function was impaired. SPEECH: She had no dysarthria. LANGUAGE: She had no aphasia. CRANIAL NERVE EXAMINATION: II: The visual hampton were intact to confrontation testing. III, IV & : The external ocular movements were full and the pupils 3 mm in diameter equal, round, regular and reactive to light. V: The temporales, masseters, and pterygoids function normally. She was able to discern pinprick and light touch, but complained of a subjective alteration over entire right face. VII: She had normal facial expressions and no facial asymmetry. VIII: She was able to hear well bilaterally and had no nystagmus. IX: The palate moved symmetrically on phonation. X: She had no hoarseness of voice. XI: The sternocleidomastoids and trapezii functioned normally. XII: The tongue was in the midline without any fasciculations or atrophy. MOTOR SYSTEM: The tone was normal in all four extremities. Examination of muscle mass revealed no focal wasting. Examination of power revealed grade 5/5 power in all muscle groups tested. SENSORY EXAMINATION: She was able to discern between pinprick and light touch. She complained of a subjective alteration of sensation over her right body. REFLEXES: 2+ and bilaterally symmetrical at the biceps, triceps, brachioradialis , and knees. 0 at both ankles. The plantar responses were flexor bilaterally. COORDINATION: She performed well on [id number] and [id number] testing. STANCE: She stood up with support. GAIT: She walked well with support. Impression/Recommendations Diagnostic Impression 1. Ms. Darleen Argueta is a 71-year-old, right-handed, lady, who does have a past history of hypertension and dyslipidemia, who was taking medicines for hypertension, but not dyslipidemia. On the morning of 12/12/2016 she felt dizzy and then her entire right body felt numb. She was evaluated in the [facility] emergency room for this problem. Since then, she has had multiple episodes of right body numbness, which last for a few minutes to 30 minutes at a time. 2. She continues to feel much better. She continues to have a subjective alteration in sensations over her right body. 3. On neurological examination, at this time, she does have problems with recent and remote memory, and a subjective alteration to pinprick and light touch over right face, arm and leg. 4. The MRI scan of the brain without contrast reveals atrophy and deep white matter disease, but no acute pathology. 5. Her B 12 level is low at 308. 6. Her carotid duplex reveals 5% bilateral ICA stenosis. 7. The patient's history and neurological examination are most compatible with a possible left brain cerebrovascular event with residual right body altered sensation and episodic dysesthesias. 8. She is also vitamin B 12 deficient. Recommendations 1. Continue present management. 2. Vitamin B12 - 1000 mcg SC daily x 3 doses and then q month. 3. Her blood pressure should be well controlled and kept in the <130/90 range. 4. Continue Lipitor for dyslipidemia. 5. Continue Plavix 75 mg daily for stroke prophylaxis. 6. Keep active. Gabe Rolle M.D., M.S.P.GABE KRISHNAMURTHY Dec 15, 2016 15:31
[2016-12-15 16:00] VITALS: BP 111/59
[2016-12-15] MEDS ORDERED: Milk of Magnesia 30ml Ud ORAL PRN (18:15)
[2016-12-15] MEDS: Docusate 100mg cap ORAL SCH (18:47)
[2016-12-15 20:00] VITALS: BP 111/66
[2016-12-15] MEDS: Atorvastatin 20mg tab ORAL SCH (20:13)
[2016-12-16] VITALS: BP 109/56
[2016-12-16 04:00] VITALS: BP 121/70
[2016-12-16 08:00] VITALS: BP 120/65
[2016-12-16 08:08] LABS: VITAMIN D 25-OH TOTAL 25 ng/mL (.)
[2016-12-16] MEDS: Docusate 100mg cap ORAL SCH (08:35)
[2016-12-16] MEDS: Aspirin Baby 81mg ORAL SCH (08:35)
[2016-12-16 08:38] VITALS: BP 120/65
[2016-12-16] MEDS: Vitamin B12 1000mcg/ml Inj SUBQ SCH (08:39)
[2016-12-16] MEDS ORDERED: Tubing IV Secondary IV ONE (10:25)
--- NOTE | 2016-12-16 11:29 | General Progress Note ---
Assessment/Plan Problem List: (1) Dizziness ICD Codes: R42 - Dizziness and giddiness SNOMED: 889616493, 432925338 (2) Stroke-like symptoms ICD Codes: R29.90 - Unspecified symptoms and signs involving the nervous system SNOMED: 710622523, 718324171 (3) Stroke-like episode ICD Codes: I63.9 - Cerebral infarction, unspecified SNOMED: 112980960 Status: progressing Assessment/Plan spoke w daughter and she is also in agreement that patient going to snf today pt agreed to snf Subjective Constitutional: Reports: no symptoms Allergies: Coded Allergies: No Known Allergies (Unverified , 11/20/12) Subjective tingling Objective Last 24 Hour Vital Signs Date Time Temp Pulse Resp B/P Pulse Ox O2 Delivery O2 Flow Rate FiO2 12/16/16 08:38 77 120/65 12/16/16 08:05 76 12/16/16 08:00 97.7 77 18 120/65 97 Room Air 12/16/16 04:00 97.8 75 18 121/70 98 Room Air 12/16/16 04:00 95 12/16/16 00:00 88 12/16/16 00:00 98.4 84 18 109/56 97 Room Air 12/15/16 20:00 97.9 77 20 111/66 98 Room Air 12/15/16 19:10 87 12/15/16 17:29 80 111/59 12/15/16 16:00 82 12/15/16 16:00 97.7 80 21 111/59 98 Room Air 12/15/16 12:00 76 12/15/16 11:39 97.3 77 18 121/68 96 Room Air Intake and Output 12/15/16 12/16/16 19:00 07:00 Intake Total 240 ml 550 ml Balance 240 ml 550 ml Intake Oral 240 ml 550 ml # Voids 2 3 Height (Feet): 5 Height (Inches): 5.00 Weight (Pounds): 178 EENT: PERRL/EOMI Neck: supple Cardiovascular: normal rate Respiratory/Chest: lungs clear Chel Lowery MD Dec 16, 2016 11:29
[2016-12-16] MEDS ORDERED: 1/2 NS 1000ml IV ONE (12:06)
--- NOTE | 2016-12-16 14:03 | General Progress Note ---
Assessment/Plan Status: stable Status Narrative BP improved Assessment/Plan status: HTN High Cholestrol Evidence of left brain cereberal event Sugg: Norvasc 5 BID controlling BP Up dose Lipitor to 20 mg QHS B12 per neuro OK for DC- FU BP as Out Patient Subjective Date patient seen: Dec 16, 2016 Time patient seen: 10:00 ROS Limited/Unobtainable: No Allergies: Coded Allergies: No Known Allergies (Unverified , 11/20/12) Objective Last 24 Hour Vital Signs Date Time Temp Pulse Resp B/P Pulse Ox O2 Delivery O2 Flow Rate FiO2 12/16/16 08:38 77 120/65 12/16/16 08:05 76 12/16/16 08:00 97.7 77 18 120/65 97 Room Air 12/16/16 04:00 97.8 75 18 121/70 98 Room Air 12/16/16 04:00 95 12/16/16 00:00 88 12/16/16 00:00 98.4 84 18 109/56 97 Room Air 12/15/16 20:00 97.9 77 20 111/66 98 Room Air 12/15/16 19:10 87 12/15/16 17:29 80 111/59 12/15/16 16:00 82 12/15/16 16:00 97.7 80 21 111/59 98 Room Air Intake and Output 12/15/16 12/16/16 19:00 07:00 Intake Total 240 ml 550 ml Balance 240 ml 550 ml Intake Oral 240 ml 550 ml # Voids 2 3 Height (Feet): 5 Height (Inches): 5.00 Weight (Pounds): 178 General Appearance: no apparent distress Objective physical exam not changed EMELY JETER Dec 16, 2016 14:03
[2016-12-19] MEDS ORDERED: PLAVIX75 MG ORAL (07:54)
[2016-12-19] MEDS ORDERED: AMLODIPINE BESYL5 MG ORAL (07:54)
--- NOTE | 2016-12-19 08:00 | Discharge Summary ---
Discharge Summary Hospital Course Date of Admission Dec 12, 2016 at 14:06 Date of Discharge Dec 16, 2016 at 12:07 Admitting Diagnosis TIA HPI Darleen Argueta is a 71 year old female who was admitted on Dec 12, 2016 at 14: 06 for Transient Ischemic Attack Hospital Course dc summary #[id number] Discharge Medications New Medications: Amlodipine Besylate* (Amlodipine Besylate*) 5 Mg Tablet 5 MG ORAL DAILY, #30 TAB Clopidogrel Bisulfate* (Plavix*) 75 Mg Tablet 75 MG ORAL DAILY, #30 TAB Continued Medications: Calcium Carbonate (Calcium) 600 Mg Tablet 600 MG ORAL BID PRN for HEARTBURN, #30 TAB 0 Refills Omeprazole (Omeprazole) 20 Mg Capsule.dr 20 MG ORAL DAILY, CAP Simvastatin (Zocor) 40 Mg Tablet 40 MG ORAL BEDTIME, TAB Triamterene (Dyrenium) 100 Mg Capsule 75 MG PO DAILY, CAP Discharge Condition Upon Discharge: stable Discharge Disposition Patient was discharged to SNF/Subacute Facility(03) Discharge Diagnoses: Discharge Instructions Discharge Instructions Special Instructions I have been assigned to complete a D/C Summary on this account. I was not involved in the patient management Natalie uDke NP (Vanchtein) Dec 19, 2016 08:00
--- NOTE | 2016-12-19 10:48 | Discharge Summary 2 SIG ---
DATE OF ADMISSION: 12/12/2016 DATE OF DISCHARGE: 12/16/2016 REASON FOR ADMISSION: 71-year-old female presented with a complaint of right-sided numbness on the face, arm, torso and the leg . After numbness started, the patient became dizzy. She drove herself to the emergency room for evaluation. She denied chest pain or shortness of breath. No history of cerebrovascular accident or carotid stenosis in the past. No history of atrial fibrillation. EKG showed normal sinus rhythm. She denied ringing in the ears. No recent upper respiratory infection. No change in hearing. No headache, No falls. No trauma. CT of the head was done in the emergency room and was negative. Lipid panel revealed elevated total cholesterol, LDL, and triglyceride. Blood pressure was elevated. Electrolytes were stable. No leukocytosis. The patient was admitted for further management. ADMITTING DIAGNOSES: 1. Stroke like symptoms. 2. Dizziness. 3. Hypertension. HOSPITAL STAY: The patient was admitted to monitored floor. Telemetry showed sinus rhythm. No evidence of arrhythmia. Troponin was negative. Lipid panel was repeated ( since initial was not fasting), still demonstrated elevated triglycerides, elevated total cholesterol and LDL. The patient was started on the statin. Blood pressure was managed with calcium channel frederic and was stable. Neurologist seen and evaluated the patient. Subsequently, ordered MRI of the brain. MRI of the brain without contrast revealed atrophy and deep white matter disease but no acute pathology. However, per Neurology, the patient's history and neurological examination were most compatible with a possible left brain cerebrovascular event with a residual right body altered sensation and episodic dysesthesia. Plavix and statin were added to the existing regimen. Fall precautions were maintained. The patient was working with physical and occupational therapists. Therapists recommended short-term [facility] facility for rehabilitation. DISCHARGE DIAGNOSES: 1. 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 2. Hypertension. 3. Mixed hyperlipidemia. 4. Dizziness, resolved. DISCHARGE MEDICATIONS: See medication reconciliation list. DISCHARGE INSTRUCTIONS: The patient was discharged to the [facility] facility for PT, OT and short-term rehab. Ali Hadadz, M.D. I have been assigned to dictate discharge summary on this account and I was not involved in the patient's management. Natalie Duke N.P. (Vanchtein) DR: JANIE JOB#: [id number] CC: TERESA
== END 2016-12-16 12:07 | DRG 66 ==
LOC: EMR 12:42 → 2E 14:06 → EDBEDREQ 14:52
DX: I63.9 Cerebral infarction, unspecified (principal); E86.0 Dehydration; E53.8 Deficiency of other specified B group vitamins; E78.5 Hyperlipidemia, unspecified; I10 Essential (primary) hypertension; R20.8 Other disturbances of skin sensation; E78.2 Mixed hyperlipidemia; Z86.19 Personal history of other infectious and parasitic diseases; Z87.891 Personal history of nicotine dependence
CPT/HCPCS: 36415; 70551; 80053; 80061; 81003; 82306; 82550; 82607; 82746; 82962; 82977; 83036; 83735; 83880; 84100; 84443; 84550; 85025; 85610; 85651; 85730; 86140; 86592; 93005; 93306; 93880; C9399; J2405; J8499

== ENCOUNTER 2016-12-17 18:04 | Emergency (ER) | payer MEDICARE, MEDICAID ==
[~2016-12-17] VITALS: Ht 165.1 cm; Wt 81.6 kg
[~2016-12-17 18:04] MED LIST changes: +DYRENIUM100 MG PO; +METOPROLOL SUC100 MG ORAL; +OMEPRAZOLE20 M2 ORAL; +SIMVASTATIN40 MG ORAL; +TUMS500 MG ORAL
--- NOTE | 2016-12-17 18:09 | Emergency Room Report ---
History of Present Illness General Chief Complaint: Constipation Source: Patient, EMS Present Illness HPI Patient is a 71-year-old female who presented after having increased abdominal distention and decreased bowel movements. Patient recently been hospitalized for CVA/TIA. Patient was noted to have had no bowel movement for the past 3 days. Patient was sent in from group home by her primary care physician for further evaluation. Patient had not been having fever. The patient been vomiting. Allergies: Coded Allergies: No Known Allergies (Unverified , 11/20/12) Patient History Past Medical History: see triage record Reviewed Nursing Documentation: PMH: Agreed, PSxH: Agreed Nursing Documentation-PM Past Medical History: No History, Except For Hx Hypertension: Yes Hx Asthma: Yes - 5 years Hx Cancer: No Hx Gastrointestinal Problems: Yes Hx Seizures: No Hx Head Trauma: Yes - Aug 2016 hit left side of head, post fall from stairs Hx Memory Loss: Yes - onset 4years ago Hx Numbness: Yes - right sided numbness Hx Fatigue: Yes Review of Systems All Other Systems: negative except mentioned in HPI Physical Exam Vital Signs Date Time Temp Pulse Resp B/P Pulse Ox O2 Delivery O2 Flow Rate FiO2 12/17/16 17:58 98.2 90 18 174/83 96 Room Air Sp02 EP Interpretation: reviewed, normal General Appearance: normal inspection, well appearing, no apparent distress, alert, GCS 15 Head: atraumatic ENT: normal ENT inspection, hearing grossly normal, normal voice Neck: normal inspection, full range of motion, supple, no bony tend Respiratory: normal inspection, lungs clear, normal breath sounds, no respiratory distress, no retraction, no wheezing Cardiovascular #1: regular rate, rhythm, no edema Gastrointestinal: normal inspection, normal bowel sounds, non tender, soft, no guarding, no hernia Genitourinary: no CVA tenderness Musculoskeletal: normal inspection, back normal, normal range of motion Neurologic: speech normal Psychiatric: normal inspection, judgement/insight normal, mood/affect normal Skin: normal inspection, normal color, no rash Medical Decision Making Diagnostic Impression: Primary Impression: Constipation Additional Impression: Hypertension ER Course Patient presented for abdominal pain. Differential diagnoses included ischemic bowel, appendicitis, perforated viscus, abdominal aortic aneurysm, inferior myocardial infarction, viral gastroenteritis Because of complexity of patient's case laboratory testing and imaging studies were ordered. CT imaging of the abdomen pelvis read by radiology showed no evidence of bowel obstruction. There is some fluid loops of bowel consistent with possible enteritis. The patient was given oral Norvasc.Patient was discharged back to group home. Nursing staff were advised her return precautions. The patient was transferred home by ambulance. Labs Test 12/17/16 18:29 12/17/16 19:20 12/17/16 20:10 White Blood Count 7.5 K/UL (4.8-10.8) Red Blood Count 4.81 M/UL (4.20-5.40) Hemoglobin 14.9 G/DL (12.0-16.0) Hematocrit 44.8 % (37.0-47.0) Mean Corpuscular Volume 93 FL (80-99) Mean Corpuscular Hemoglobin 31.0 PG (27.0-31.0) Mean Corpuscular Hemoglobin Concent 33.3 G/DL (32.0-36.0) Red Cell Distribution Width 11.9 % (11.6-14.8) Platelet Count 178 K/UL (150-450) Mean Platelet Volume 9.8 FL (6.5-10.1) Neutrophils (%) (Auto) 61.6 % (45.0-75.0) Lymphocytes (%) (Auto) 24.6 % (20.0-45.0) Monocytes (%) (Auto) 10.5 % (1.0-10.0) Eosinophils (%) (Auto) 2.0 % (0.0-3.0) Basophils (%) (Auto) 1.3 % (0.0-2.0) Total Bilirubin 0.5 mg/dL (0.0-1.2) Aspartate Amino Transf (AST/SGOT) 37 U/L (5-40) Alanine Aminotransferase (ALT/SGPT) 21 U/L (3-33) Alkaline Phosphatase 50 U/L (35-104) Troponin I < 0.30 ng/mL (<=0.30) Total Protein 7.4 g/dL (6.6-8.7) Albumin 4.0 g/dL (3.5-5.2) Globulin 3.4 g/dL Albumin/Globulin Ratio 1.1 (1.0-2.7) Lipase 34 U/L (< 60) Urine Color Pale yellow Urine Appearance Clear Urine pH 8 (4.5-8.0) Urine Specific [place] 1.015 (1.005-1.035) Urine Protein Negative (NEGATIVE) Urine Glucose (UA) Negative (NEGATIVE) Urine Ketones Negative (NEGATIVE) Urine Occult Blood Negative (NEGATIVE) Urine Nitrite Negative (NEGATIVE) Urine Bilirubin Negative (NEGATIVE) Urine Urobilinogen Normal MG/DL (0.0-1.0) Urine Leukocyte Esterase Negative (NEGATIVE) Sodium Level 137 mEQ/L (135-145) Potassium Level 3.9 mEQ/L (3.4-4.9) Chloride Level 97 mEQ/L (98-107) Carbon Dioxide Level 27 mEQ/L (20-30) Anion Gap 13 (5-15) Blood Urea Nitrogen 9 mg/dL (7-23) Creatinine 0.8 mg/dL (0.5-0.9) Estimat Glomerular Filtration Rate mL/min (>60) Glucose Level 88 mg/dL (74-106) Calcium Level 8.8 mg/dL (8.6-10.2) Last Vital Signs Date Time Temp Pulse Resp B/P Pulse Ox O2 Delivery O2 Flow Rate FiO2 12/17/16 17:58 98.2 90 18 174/83 96 Room Air Status: improved Disposition: XFER SNF Condition: Stable Issac Fuentes Dec 17, 2016 18:09
[2016-12-17 18:33] VITALS: BP 166/78
[2016-12-17 18:38] LABS: BASOPHILS % (AUTO) 1.3 % (0.0-2.0); LYMPHOCYTES % (AUTO) 24.6 % (20.0-45.0); MEAN CORPUSCULAR HGB CONC 33.3 G/DL (32.0-36.0); MEAN CORPUSCULAR VOLUME 93 FL (80-99); MEAN PLATELET VOLUME 9.8 FL (6.5-10.1); MONOCYTES % (AUTO) 10.5 % (1.0-10.0); NEUTROPHILS % (AUTO) 61.6 % (45.0-75.0); PLATELET COUNT 178 K/UL (150-450); RED BLOOD COUNT 4.81 M/UL (4.20-5.40); RED CELL DISTRIBUTION WIDTH 11.9 % (11.6-14.8); WHITE BLOOD COUNT 7.5 K/UL (4.8-10.8)
[2016-12-17 18:54] LABS: TROPONIN I < 0.30 ng/mL (<=0.30)
[2016-12-17 18:57] LABS: ALANINE AMINOTRANSFERASE 21 U/L (3-33); ALBUMIN/GLOBULIN RATIO 1.1 (1.0-2.7); ANION GAP 15 (5-15); ASPARTATE AMINO TRANSFERASE 37 U/L (5-40); CALCIUM 8.9 mg/dL (8.6-10.2); CARBON DIOXIDE 25 mEQ/L (20-30); CHLORIDE 98 mEQ/L (98-107); CREATININE 0.8 mg/dL (0.5-0.9); HEMOLYSIS 168; LIPASE 34 U/L (< 60); SODIUM 138 mEQ/L (135-145); TOTAL PROTEIN 7.4 g/dL (6.6-8.7)
[2016-12-17 18:59] LABS: POTASSIUM 5.8 mEQ/L (3.4-4.9)
[2016-12-17 19:55] LABS: APPEARANCE,URINE CLEAR; KETONES,URINE NEGATIVE (NEGATIVE); LEUKOCYTE ESTERASE ,URINE NEGATIVE (NEGATIVE); NITRITE,URINE NEGATIVE (NEGATIVE); PH,URINE 8 (4.5-8.0); PROTEIN,URINE NEGATIVE (NEGATIVE); UROBILINOGEN,URINE NORMAL MG/DL (0.0-1.0)
[2016-12-17 20:32] LABS: ANION GAP 13 (5-15); CALCIUM 8.8 mg/dL (8.6-10.2); CARBON DIOXIDE 27 mEQ/L (20-30); CHLORIDE 97 mEQ/L (98-107); CREATININE 0.8 mg/dL (0.5-0.9); HEMOLYSIS 5; POTASSIUM 3.9 mEQ/L (3.4-4.9); SODIUM 137 mEQ/L (135-145)
[2016-12-17 20:48] VITALS: BP 142/85
[2016-12-17 21:07] VITALS: BP 142/85
[2016-12-17] MEDS ORDERED: Atorvastatin 20mg tab ORAL ONE (22:15)
--- NOTE | 2016-12-18 10:06 | Diagnostic Imaging Report ---
Indication: Abdominal pain Technique: Continuous helical transaxial imaging of the abdomen and pelvis was obtained from the lung bases to the pubic symphysis during intravenous contrast administration. Coronal 2-D reformats were also obtained. Study obtained in a Siemens sensation [address] Total Dose length Product (DLP): [address] Dose Index Volume (CTDIvol): 20 mGy Comparison: None Findings: There are fluid-filled loops of small bowel as well as large bowel. Gastroenteritis is suspected. Please correlate clinically. The appendix is seen and appears normal. Solid organs are unremarkable in appearance. There are cysts present within the left kidney. No free fluid or free air identified. Aorta is mildly calcified. Lung bases appear clear. Impression: Suspected gastroenteritis and diarrhea. Please correlate clinically Left renal cysts Atherosclerotic vascular disease Small hiatal hernia The CT scanner at [facility] is accredited by the [employer] and the scans are performed using protocols designed to limit radiation exposure to as low as reasonably achievable to attain images of sufficient resolution adequate for diagnostic evaluation.
[2016-12-19] MEDS ORDERED: PLAVIX75 MG ORAL (07:54)
[2016-12-19] MEDS ORDERED: AMLODIPINE BESYL5 MG ORAL (07:54)
== END 2016-12-17 22:10 | disposition home or self-care (01) ==
LOC: EDBD 18:04 → EMR 18:28
DX: K59.00 Constipation, unspecified (principal); I10 Essential (primary) hypertension; J45.909 Unspecified asthma, uncomplicated; Z86.73 Personal history of transient ischemic attack (TIA), and cerebral infarction without residual deficits
CPT/HCPCS: 36415; 74177; 80048; 80053; 81003; 83690; 84484; 85025; 99283; Q9967

== ENCOUNTER → 2017-01-17 | Outpatient (CLI) | payer MEDICARE, MEDICAID ==
[~2017-01-17] MED LIST changes: +AMLODIPINE BESYL5 MG ORAL; +PLAVIX75 MG ORAL
--- NOTE | 2017-01-17 15:28 | Diagnostic Imaging Report ---
Indication: PAIN Technique: 3 views left hand Comparison: 08/24/2016 Findings: There are degenerative changes of the second through fifth distal interphalangeal joints and of the fourth and fifth proximal interphalangeal joint. No acute fractures. There is a small fragment anterior to the head of the fourth proximal phalanx, with a small defect at the base of the fourth middle phalanx. These appear to be corticated, may indicate an old injury. No dislocations. The bones are osteoporotic. Impression: No acute bony trauma Degenerative changes, as described Possible old fourth middle phalangeal base fracture. Osteoporosis
== END | disposition home or self-care (01) ==
LOC: RAD 14:41
DX: M25.542 Pain in joints of left hand (principal); M81.0 Age-related osteoporosis without current pathological fracture; Z86.73 Personal history of transient ischemic attack (TIA), and cerebral infarction without residual deficits

== ENCOUNTER 2017-03-27 11:18 | Emergency (ER) | payer MEDICARE, MEDICAID ==
[~2017-03-27] VITALS: Ht 165.1 cm; Wt 78.0 kg
[2017-03-27 11:50] VITALS: BP 159/83
[2017-03-27] MEDS ORDERED: Bacitracin Oint UD TOPIC ONE (12:10)
[2017-03-27] MEDS ORDERED: TdaP Vaccine 0.5ml Syr IM ONE (12:15)
[2017-03-27 12:23] VITALS: BP 142/79
--- NOTE | 2017-03-27 15:40 | Emergency Room Report ---
History of Present Illness General Chief Complaint: Laceration Source: Patient Present Illness HPI 71-year-old female presents to ED with laceration to the left big toe. States that she dropped a mirror and some broken glass cut her foot earlier today. Notes a small laceration to her left big toe. Patient is here because she is on blood thinners he cannot stop the bleeding. Patient denies any pain. Tetanus unknown. Patient states the bleeding is now improved. Per triage patient is tachycardic. Patient states she is currently on a Holter monitor by her PMD because of the tachycardia. Denies any dizziness or weakness. Denies chest pain or shortness of breath. No other aggravating or leading factors. Denies any other associated symptoms Allergies: Coded Allergies: No Known Allergies (Unverified , 11/20/12) Patient History Past Medical History: HTN, asthma Past Surgical History: none Pertinent Family History: none Social History: Denies: alcohol use, drug use, smoking Now: No Immunizations: UTD Reviewed Nursing Documentation: PMH: Agreed, PSxH: Agreed Nursing Documentation-PMH Past Medical History: No History, Except For Hx Cardiac Problems: Yes - fatty liver, high cholesterol, heart monitor Hx Hypertension: Yes Hx Asthma: Yes - 5 years Hx Cancer: No Hx Gastrointestinal Problems: Yes Hx Cerebrovascular Accident: Yes - 2016 Hx Seizures: No Hx Head Trauma: Yes - Aug 2016 hit left side of head, post fall from stairs Hx Memory Loss: Yes - onset 4years ago Hx Numbness: Yes - right sided numbness Hx Fatigue: Yes Review of Systems All Other Systems: negative except mentioned in HPI Physical Exam Vital Signs Date Time Temp Pulse Resp B/P Pulse Ox O2 Delivery O2 Flow Rate FiO2 03/27/17 11:31 98.4 121 19 159/83 97 Room Air Sp02 EP Interpretation: reviewed, normal General Appearance: no apparent distress, alert, GCS 15, non-toxic Head: normocephalic Eyes: bilateral eye PERRL, bilateral eye normal inspection ENT: normal ENT inspection Neck: normal inspection Respiratory: normal inspection Cardiovascular #1: normal inspection Gastrointestinal: normal inspection Rectal: deferred Genitourinary: no CVA tenderness Musculoskeletal: back normal, gait/station normal, normal range of motion, non- tender Neurologic: alert, oriented x3, responsive, motor strength/tone normal, sensory intact, speech normal Psychiatric: normal inspection Skin: other - 1cm superficial laceration to dorsal aspect L big toe. no active bleeding Lymphatic: normal inspection Medical Decision Making Diagnostic Impression: Primary Impression: Laceration of toe Qualified Codes: S91.112A - Laceration without foreign body of left great toe without damage to nail, initial encounter ER Course Hospital Course 71-year-old F presents to ED s/p laceration L big toe s/p broken glass Clinical course Patient placed on stretcher. After initial history and physical I ordered tetanus shot. Wound is irrigated. There is no active bleeding. Wound is superficial. Patient would prefer not to have stitches. I do not believe patient requires suturing at this time. Steri-Strips and bacitracin and dressings applied Diagnosis - laceration of toe Stable and discharged to home. wound Care instructions given. Followup with PMD. Return to ED if any signs of infection develop Last Vital Signs Date Time Temp Pulse Resp B/P Pulse Ox O2 Delivery O2 Flow Rate FiO2 03/27/17 12:23 98.4 97 19 142/79 97 Room Air Status: improved Disposition: HOME, SELF-CARE Condition: Stable Referrals: NOT CHOSEN IPA/,REFERRING Patient Instructions: Nonsutured Laceration Care DONNA MEADOWS M.D. Mar 27, 2017 15:40
== END 2017-03-27 12:27 | disposition home or self-care (01) ==
LOC: EMR 12:00
DX: S91.112A Laceration without foreign body of left great toe without damage to nail, initial encounter (principal); Z23 Encounter for immunization; W25.XXXA Contact with sharp glass, initial encounter; Y93.9 Activity, unspecified; Y92.9 Unspecified place or not applicable; R00.0 Tachycardia, unspecified; I10 Essential (primary) hypertension; Z86.73 Personal history of transient ischemic attack (TIA), and cerebral infarction without residual deficits
CPT/HCPCS: 90471; 90715; 96372; 99283

== ENCOUNTER 2017-05-07 08:25 | Outpatient (CLI) | payer MEDICARE, MEDICAID | END 2017-05-07 10:25 | disposition home or self-care (01) | LOC: MAMMO 08:25 | DX: Z12.31 Encounter for screening mammogram for malignant neoplasm of breast (principal) | CPT/HCPCS: 77067 ==

== ENCOUNTER 2017-11-13 10:34 | Emergency (ER) | payer MEDICARE, MEDICAID ==
[~2017-11-13] VITALS: Ht 165.1 cm; Wt 72.6 kg
[2017-11-13] MEDS ORDERED: Ipratropium 0.02% Inh Soln 2.5ml UD HHN ONE (10:45)
[2017-11-13] MEDS ORDERED: Albuterol ud Inhalation HHN ONE (10:45)
--- NOTE | 2017-11-13 11:30 | Diagnostic Imaging Report ---
Indication: Shortness of breath Technique: One view of the chest Comparison: none Findings: No acute infiltrates, effusions, or congestion. Tortuous calcified aorta. Normal heart size. Upper mediastinum unremarkable. Better inspiration than on the previous exam Impression: No acute process.
--- NOTE | 2017-11-13 12:25 | Emergency Room Report ---
History of Present Illness General Chief Complaint: Flu Like Symptoms Source: Patient Present Illness HPI Patient with URI sy for 6 days. Lack of appetite. Some chest pain with cough. No flu shot. No color to phlegm. + muscle aches and some weakness. No NVD. Min sore throat. Denies pain at this time. No doc fever, but felt feverish. Somewhat better. No meds taken. According to old records, h/o asthma. No dysuria. No depression. H/O hepatitis C TIA like symptoms in past Allergies: Coded Allergies: No Known Allergies (Unverified , 11/20/12) Patient History Past Medical History: see triage record Social History: Reports: smoking - prior, alcohol use - prior Social History Narrative at home Reviewed Nursing Documentation: PMH: Agreed, PSxH: Agreed Nursing Documentation-PMH Hx Cardiac Problems: Yes - fatty liver, high cholesterol, heart monitor Hx Hypertension: Yes Hx Asthma: Yes - 5 years Hx Cancer: No Hx Gastrointestinal Problems: Yes Hx Cerebrovascular Accident: Yes - 2016 Hx Seizures: No Hx Head Trauma: Yes - Aug 2016 hit left side of head, post fall from stairs Hx Memory Loss: Yes - onset 4years ago Hx Numbness: Yes - right sided numbness Hx Fatigue: Yes Review of Systems All Other Systems: negative except mentioned in HPI Physical Exam Vital Signs Date Time Temp Pulse Resp B/P (MAP) Pulse Ox O2 Delivery O2 Flow Rate FiO2 11/13/17 10:37 98.4 88 20 135/84 99 Room Air Sp02 EP Interpretation: reviewed, normal General Appearance: well appearing, no apparent distress, GCS 15 Head: normocephalic Eyes: bilateral eye normal inspection ENT: moist mucus membranes Neck: supple Respiratory: wheezing, expiration Cardiovascular #1: regular rate, rhythm Cardiovascular #2: 2+ radial (R) Gastrointestinal: normal inspection, normal bowel sounds, non tender, no mass, non-distended Musculoskeletal: back normal, gait/station normal, normal range of motion, no calf tenderness Neurologic: alert, oriented x3, grossly normal Psychiatric: mood/affect normal Skin: normal inspection, warm/dry Medical Decision Making Diagnostic Impression: Primary Impression: URI (upper respiratory infection) Qualified Codes: J06.9 - Acute upper respiratory infection, unspecified Additional Impression: Bronchospasm ER Course Patient presents with 6 days of URI. Ddx: bronchitis, influenza, PNA, asthma exacerbation, AMI amongst others. Evaluation with EKG, CXR and influenza test. Treatment with albuterol and atrovent. EKG without injury. CXR no infiltrates. Influenza neg. Improved with treatment. Prednisone given. Patient stable for outpatient observation and treatment. Microbiology Date/Time Source Procedure Growth Status 11/13/17 10:52 Nasal Nares Influenza Types A,B Antigen (GEM) - Final Complete EKG Diagnostic Results Rate: normal Rhythm: NSR ST Segments: no acute changes Rhythm Strip Diag. Results EP Interpretation: yes Rhythm: NSR, no PVC's, no ectopy Chest X-Ray Diagnostic Results Chest X-Ray Diagnostic Results : Chest X-Ray Ordered: Yes # of Views/Limited/Complete: 1 View Indication: Other EP Interpretation: Yes Interpretation: no consolidation, no effusion, no pneumothorax Impression: No acute disease Electronically Signed by: Donis Walton MD Last Vital Signs Date Time Temp Pulse Resp B/P (MAP) Pulse Ox O2 Delivery O2 Flow Rate FiO2 11/13/17 12:49 80 18 138/86 96 Room Air 11/13/17 10:37 98.4 Status: improved Disposition: HOME, SELF-CARE Condition: Improved Scripts Guaifenesin/Codeine Phos* (ROBITUSSIN AC*) 118 Ml Liquid 5 ML ORAL Q6H Y for For Cough, #60 ML 0 Refills Prov: Donis Walton M.D. 11/13/17 Prednisone* (PREDNISONE*) 20 Mg Tablet 40 MG ORAL DAILY, #10 TAB Prov: Donis Walton M.D. 11/13/17 Referrals: NOT CHOSEN DOMINICK/,REFERRING (PCP) Donis Walton M.D. Nov 13, 2017 12:25
[2017-11-13] MEDS ORDERED: GUAIFENESIN-CO118 M1 ORAL (12:27)
[2017-11-13] MEDS ORDERED: PREDNISONE20 MG ORAL (12:27)
[2017-11-13 12:49] VITALS: BP 138/86
--- NOTE | 2017-11-14 19:03 | Cardiology Report ---
APPROVED REPORT EKG Measurement Heart [id number] Normal sinus rhythm Normal ECG
== END 2017-11-13 12:51 | disposition home or self-care (01) ==
LOC: EMR 11:22
DX: J06.9 Acute upper respiratory infection, unspecified (principal); J45.909 Unspecified asthma, uncomplicated; I10 Essential (primary) hypertension; Z86.73 Personal history of transient ischemic attack (TIA), and cerebral infarction without residual deficits; F17.200 Nicotine dependence, unspecified, uncomplicated
CPT/HCPCS: 71045; 86710; 93005; 94640; 94664; 99284; J7512

== ENCOUNTER 2017-11-16 12:44 | Inpatient (IN) | payer MEDICARE, MEDICAID ==
[~2017-11-16] VITALS: Ht 165.1 cm; Wt 75.7 kg
[~2017-11-16 12:44] MED LIST changes: +GUAIFENESIN-CO118 M1 ORAL; +PREDNISONE20 MG ORAL
[2017-11-16] MEDS ORDERED: ASPIRIN81 MG ORAL (13:20)
[2017-11-16] MEDS ORDERED: POTASSIUM CHLO20 ME2 ORAL (13:20)
[2017-11-16] MEDS ORDERED: HYDRALAZINE HCL25 M1 ORAL (13:20)
[2017-11-16] MEDS ORDERED: LOSARTAN POTASS50 MG ORAL (13:20)
[2017-11-16] MEDS ORDERED: BUPROPION XL150 MG ORAL (13:20)
[2017-11-16] MEDS ORDERED: FUROSEMIDE20 M1 ORAL (13:20)
[2017-11-16] MEDS ORDERED: Levalbuterol Inh UD 1.25mg/0.5ml HHN ONE (13:30)
[2017-11-16] MEDS ORDERED: Promethazine/Codeine 5ml UD ORAL ONE (13:30)
[2017-11-16] MEDS ORDERED: Solu-MEDROL 125mg Inj IVP ONE (13:30)
[2017-11-16 14:04] LABS: BASOPHILS % (AUTO) 0.3 % (0.0-2.0); HEMATOCRIT 40.8 % (37.0-47.0); HEMOGLOBIN 13.3 G/DL (12.0-16.0); LYMPHOCYTES % (AUTO) 12.5 % (20.0-45.0); MEAN CORPUSCULAR VOLUME 94 FL (80-99); MONOCYTES % (AUTO) 2.6 % (1.0-10.0); NEUTROPHILS % (AUTO) 84.5 % (45.0-75.0); PLATELET COUNT 211 K/UL (150-450); RED BLOOD COUNT 4.34 M/UL (4.20-5.40); RED CELL DISTRIBUTION WIDTH 12.2 % (11.6-14.8); WHITE BLOOD COUNT 8.1 K/UL (4.8-10.8)
[2017-11-16 14:13] VITALS: BP 140/74
[2017-11-16 14:16] LABS: ANION GAP 10 mmol/L (5-15); BLOOD UREA NITROGEN 17 mg/dL (7-18); CALCIUM 9.2 MG/DL (8.5-10.1); CARBON DIOXIDE 28 MMOL/L (21-32); CHLORIDE 107 MMOL/L (98-107); CREATININE 1.2 MG/DL (0.55-1.30); POTASSIUM 4.6 MMOL/L (3.5-5.1); SODIUM 145 MMOL/L (136-145)
--- NOTE | 2017-11-16 14:17 | Diagnostic Imaging Report ---
Indication: Chest pain Comparison: 11/13/2017 A single view chest radiograph was obtained. Findings: No definite infiltrate or pulmonary vascular congestion identified. The heart is normal in size. The aorta is mildly enlarged consistent with atherosclerotic vascular disease. The bones are osteopenic. Impression: No acute disease
[2017-11-16 14:29] LABS: ALANINE AMINOTRANSFERASE 35 U/L (12-78); ALBUMIN 3.7 G/DL (3.4-5.0); ALKALINE PHOSPHATASE 60 U/L (46-116); ASPARTATE AMINO TRANSFERASE 22 U/L (15-37); BILIRUBIN,TOTAL 0.4 MG/DL (0.2-1.0); CREATINE KINASE 84 U/L (26-308)
[2017-11-16 14:53] LABS: APPEARANCE,URINE CLEAR; BILIRUBIN, URINE NEGATIVE (NEGATIVE); COLOR,URINE PALE YELLOW; GLUCOSE, URINE (UA) NEGATIVE (NEGATIVE); KETONES,URINE NEGATIVE (NEGATIVE); LEUKOCYTE ESTERASE ,URINE NEGATIVE (NEGATIVE); NITRITE,URINE NEGATIVE (NEGATIVE); PH,URINE 6 (4.5-8.0); PROTEIN,URINE NEGATIVE (NEGATIVE); UROBILINOGEN,URINE NORMAL MG/DL (0.0-1.0)
--- NOTE | 2017-11-16 15:40 | History & Physical ---
History and Physical History & Physicial Vital Signs -Extended Height: 65 inches Weight: 165.5 pounds Temperature: 98.6 degrees F (oral) Pulse rate: 110 /min Pulse rhythm: regular Respirations: 12 /min Pain Level: 0 O2 Sat: 99% Blood Pressure: 163/84 mm Hg Calculations Body Mass Index: 27.64 Body Surface Area (m2): 1.83 History of Present Illness 72 Year Old Female patient presents for admission. Patient reports a dry cough with chest tightness and wheezing which has not improved. She reports coughing constantly. Patient is taking her prescribed medications as directed and is compliant. She notes she is unable to sleep due to the cough. She noted to be tachycardic. Patient not doing well. she went to the ER and evaluation notable for lactic acidosis. chest Xray is negative care discussed in detail with ER physician. Prior ER visit reviewed Active Medications (reviewed today): BREO ELLIPTA 100-25 MCG/INH INHALATION AEROSOL POWDER BREATH ACTIVATED ( FLUTICASONE FUROATE-VILANTEROL) 1 puff qd MIRALAX ORAL POWDER (POLYETHYLENE GLYCOL 3350) 1 scoop nightly FLUTICASONE PROPIONATE 50 MCG/ACT NASAL SUSPENSION (FLUTICASONE PROPIONATE) 2 spray to each nostrils daily HYDRALAZINE HCL 25 MG ORAL TABLET (HYDRALAZINE HCL) 1 tab TID PROAIR RESPICLICK 108 (90 Base) MCG/ACT INH AEPB (ALBUTEROL SULFATE) 1-2 puffs q4 prn LUZ-CARMEL 8.6 MG ORAL TABLET (SENNOSIDES) Take one tablet daily ASPIR-81 81 MG ORAL TABLET DELAYED RELEASE (ASPIRIN) 1 tab daily WELLBUTRIN XL 300 MG ORAL TABLET EXTENDED RELEASE 24 HOUR (BUPROPION HCL) 1 tab qd POTASSIUM CHLORIDE ER 20 MEQ ORAL TABLET EXTENDED RELEASE (POTASSIUM CHLORIDE) 1 tab qd PLAVIX 75 MG ORAL TABLET (CLOPIDOGREL BISULFATE) 1 tab qd for DVT prophylaxis LIPITOR 20 MG ORAL TABLET (ATORVASTATIN CALCIUM) 1 tab at bedtime for hyperlipidemia LASIX 20 MG ORAL TABLET (FUROSEMIDE) 1 by mouth every am COZAAR 100 MG ORAL TABLET (LOSARTAN POTASSIUM) 1 tab qd for HTN Current Allergies (reviewed today): No known allergies No Known Drug Allergies Past History Past Medical History (reviewed - no changes required): 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 Hypertension Hypercholesterolemia asthma hearing aids macular degeneration hx hepatitis C hx postive skin test ppd-negative xray Urgent Care and they found an ingro hair or cut under her armpid and it was infected Surgical History (reviewed - no changes required): None Family History (reviewed - no changes required): Both parents Mother-Diabetes Mellitus, Hypertension, heart disease Father- work accident brother-Diabetes Mellitus Social History (reviewed - no changes required): single;3 children; lives alone Risk Factors: Smoked Tobacco Use: Former smoker Cigarettes: Yes -- 1/4 pack(s) per day, Years smoked: 5 Year quit: 60 Caffeine use: 1 drinks per day Alcohol use: no WDWN NAD reduced breath sounds bilaterally with some wheeze [id number] tachy without MRG NABS nontender no HSM no CCE nonfocal Laboratory Tests Test 11/16/17 13:34 11/16/17 14:26 White Blood Count 8.1 K/UL (4.8-10.8) Red Blood Count 4.34 M/UL (4.20-5.40) Hemoglobin 13.3 G/DL (12.0-16.0) Hematocrit 40.8 % (37.0-47.0) Mean Corpuscular Volume 94 FL (80-99) Mean Corpuscular Hemoglobin 30.6 PG (27.0-31.0) Mean Corpuscular Hemoglobin Concent 32.6 G/DL (32.0-36.0) Red Cell Distribution Width 12.2 % (11.6-14.8) Platelet Count 211 K/UL (150-450) Mean Platelet Volume 9.4 FL (6.5-10.1) Neutrophils (%) (Auto) 84.5 % (45.0-75.0) H Lymphocytes (%) (Auto) 12.5 % (20.0-45.0) L Monocytes (%) (Auto) 2.6 % (1.0-10.0) Eosinophils (%) (Auto) 0.0 % (0.0-3.0) Basophils (%) (Auto) 0.3 % (0.0-2.0) Sodium Level 145 MMOL/L (136-145) Potassium Level 4.6 MMOL/L (3.5-5.1) Chloride Level 107 MMOL/L (98-107) Carbon Dioxide Level 28 MMOL/L (21-32) Anion Gap 10 mmol/L (5-15) Blood Urea Nitrogen 17 mg/dL (7-18) Creatinine 1.2 MG/DL (0.55-1.30) Estimat Glomerular Filtration Rate mL/min (>60) Glucose Level 142 MG/DL (74-106) H Lactic Acid Level 4.10 mmol/L (0.66-2.22) H Calcium Level 9.2 MG/DL (8.5-10.1) Total Bilirubin 0.4 MG/DL (0.2-1.0) Aspartate Amino Transf (AST/SGOT) 22 U/L (15-37) Alanine Aminotransferase (ALT/SGPT) 35 U/L (12-78) Alkaline Phosphatase 60 U/L (46-116) Total Creatine Kinase 84 U/L (26-308) Creatine Kinase MB 2.0 NG/ML (0.0-3.6) Creatine Kinase MB Relative Index 2.3 Troponin I 0.018 ng/mL (0.000-0.056) Pro-B-Type Natriuretic Peptide 145 pg/mL (0-125) H Total Protein 7.5 G/DL (6.4-8.2) Albumin 3.7 G/DL (3.4-5.0) Globulin 3.8 g/dL Albumin/Globulin Ratio 1.0 (1.0-2.7) Lipase 145 U/L (73-393) Urine Color Pale yellow Urine Appearance Clear Urine pH 6 (4.5-8.0) Urine Specific Wh[place] 1.015 (1.005-1.035) Urine Protein Negative (NEGATIVE) Urine Glucose (UA) Negative (NEGATIVE) Urine Ketones Negative (NEGATIVE) Urine Occult Blood Negative (NEGATIVE) Urine Nitrite Negative (NEGATIVE) Urine Bilirubin Negative (NEGATIVE) Urine Urobilinogen Normal MG/DL (0.0-1.0) Urine Leukocyte Esterase Negative (NEGATIVE) IMPRESSION Asthma exacerbation sinus tachycardia hypertension cough congestion PLAN IV solumedrol IV hydration resume meds empiric antibiotics DVT prophylaxis impression, plan, and exam edited and reviewed in detail care discussed with VARGHESE GIVENS Nov 16, 2017 15:40
[2017-11-16 17:24] VITALS: BP 136/69
[2017-11-16] MEDS ORDERED: Zolpidem 5mg tab ORAL PRN (19:45)
[2017-11-16] MEDS ORDERED: Tums 500mg ORAL PRN (19:45)
[2017-11-16] MEDS ORDERED: Guaifenesin/DM 10ml syrup ORAL PRN (19:45)
[2017-11-16 20:00] VITALS: BP 134/69
[2017-11-16] MEDS ORDERED: cefTRIAXone 1 GM in D5W 55 ML IVPB SCH (21:00)
[2017-11-16] MEDS: Heparin 5000 units/ml inj SUBQ SCH (21:00)
[2017-11-16] MEDS: BuPROPion XL 150mg tab ORAL SCH (21:00)
[2017-11-16] MEDS: cefTRIAXone 1 GM in NS 55 ML IVPB SCH (21:28)
[2017-11-16] MEDS: HydrALAZINE 25mg tab ORAL SCH (21:50)
[2017-11-16] MEDS: Solu-MEDROL 40mg Inj IVP SCH (21:50)
[2017-11-17] VITALS: BP 126/88
[2017-11-17 04:00] VITALS: BP 121/72
[2017-11-17] MEDS: Solu-MEDROL 40mg Inj IVP SCH ×3 (06:00→21:54)
[2017-11-17] MEDS: HydrALAZINE 25mg tab ORAL SCH ×3 (06:00→22:03)
[2017-11-17 08:00] VITALS: BP 121/67
[2017-11-17] MEDS: Losartan 50mg tab ORAL SCH (08:50)
[2017-11-17] MEDS: Aspirin Baby 81mg ORAL SCH (08:50)
[2017-11-17] MEDS: Heparin 5000 units/ml inj SUBQ SCH ×2 (08:51→21:59)
--- NOTE | 2017-11-17 10:59 | General Progress Note ---
Assessment/Plan Assessment/Plan IMPRESSION Asthma exacerbation sinus tachycardia hypertension cough congestion PLAN IV solumedrol IV hydration resume meds empiric antibiotics DVT prophylaxis dc home with home health impression, plan, and exam edited and reviewed in detail care discussed with RN Subjective Allergies: Coded Allergies: No Known Allergies (Unverified , 11/20/12) Subjective improved less sob and tachycardic Objective Last 24 Hour Vital Signs Date Time Temp Pulse Resp B/P (MAP) Pulse Ox O2 Delivery O2 Flow Rate FiO2 11/17/17 08:50 121/67 11/17/17 08:50 81 121/72 11/17/17 08:00 97.1 81 19 121/67 97 Room Air 11/17/17 08:00 85 11/17/17 04:00 97.9 81 20 121/72 97 Room Air 11/17/17 00:00 97.3 86 20 126/88 96 Room Air 11/17/17 00:00 81 11/16/17 21:50 146/76 11/16/17 20:00 81 11/16/17 20:00 97.0 83 20 134/69 99 Room Air 11/16/17 18:41 85 18 136/69 99 Room Air 11/16/17 17:24 85 18 136/69 99 Room Air 11/16/17 14:25 21 11/16/17 14:25 77 14 Room Air 21 11/16/17 14:25 77 14 99 Room Air 21 11/16/17 14:13 85 25 140/74 100 Room Air 11/16/17 12:59 98.2 112 20 158/92 95 Room Air Intake and Output 11/16/17 11/17/17 19:00 07:00 Intake Total 1150 ml Balance 1150 ml Intake Oral 150 ml IV Total 1000 ml Laboratory Tests 11/16/17 13:34: White Blood Count 8.1, Red Blood Count 4.34, Hemoglobin 13.3, Hematocrit 40.8, Mean Corpuscular Volume 94, Mean Corpuscular Hemoglobin 30.6, Mean Corpuscular Hemoglobin Concent 32.6, Red Cell Distribution Width 12.2, Platelet Count 211, Mean Platelet Volume 9.4, Neutrophils (%) (Auto) 84.5H, Lymphocytes (%) (Auto) 12.5L, Monocytes (%) (Auto) 2.6, Eosinophils (%) (Auto) 0.0, Basophils (%) (Auto ) 0.3, Sodium Level 145, Potassium Level 4.6, Chloride Level 107, Carbon Dioxide Level 28, Anion Gap 10, Blood Urea Nitrogen 17, Creatinine 1.2, Estimat Glomerular Filtration Rate , Glucose Level 142H, Lactic Acid Level 4.10H, Calcium Level 9.2, Total Bilirubin 0.4, Aspartate Amino Transf (AST/SGOT) 22, Alanine Aminotransferase (ALT/SGPT) 35, Alkaline Phosphatase 60, Total Creatine Kinase 84, Creatine Kinase MB 2.0, Creatine Kinase MB Relative Index 2.3, Troponin I 0.018, Pro-B-Type Natriuretic Peptide 145H, Total Protein 7.5, Albumin 3.7, Globulin 3.8, Albumin/Globulin Ratio 1.0, Lipase 145 11/16/17 14:26: Urine Color Pale yellow, Urine Appearance Clear, Urine pH 6, Urine Specific Emerson 1.015, Urine Protein Negative, Urine Glucose (UA) Negative, Urine Ketones Negative, Urine Occult Blood Negative, Urine Nitrite Negative, Urine Bilirubin Negative, Urine Urobilinogen Normal, Urine Leukocyte Esterase Negative 11/16/17 17:33: Lactic Acid Level 3.10H Height (Feet): 5 Height (Inches): 5.00 Weight (Pounds): 167 Objective WDWN NAD clear breath sounds bilaterally without rhonchi or wheeze [id number] without MRG NABS nontender no HSM no CCE nonfocal VARGHESE HECTOR Nov 17, 2017 10:59
[2017-11-17] MEDS ORDERED: Metoprolol Succinate XL 100mg tab ORAL SCH (11:00)
[2017-11-17 12:00] VITALS: BP 114/74
--- NOTE | 2017-11-17 14:50 | Emergency Room Report ---
History of Present Illness General Chief Complaint: Abnormal Labs Source: Patient Present Illness HPI Patient presents from her physician's office for tachycardia shortness of breath Patient was here recently in the emergency room with similar complaints she has had a dry cough has previous history of asthma Denies any chest pain Denies any vomiting She has had decreased appetite Denies any recent travel denies any pleurisy She has some palpitation sensation but denies any chest pain Denies any calf swelling or pain patient also had some nasal congestion Allergies: Coded Allergies: No Known Allergies (Unverified , 11/20/12) Patient History Past Medical History: see triage record Pertinent Family History: none Reviewed Nursing Documentation: PMH: Agreed, PSxH: Agreed Nursing Documentation-PMH Past Medical History: No History, Except For Hx Cardiac Problems: Yes Hx Hypertension: Yes Hx Asthma: Yes - 5 years Hx Cancer: No Hx Gastrointestinal Problems: Yes Hx Cerebrovascular Accident: Yes - 2016 Hx Seizures: No Hx Head Trauma: Yes - Aug 2016 hit left side of head, post fall from stairs Hx Memory Loss: Yes - onset 4years ago Hx Numbness: Yes - right sided numbness Hx Fatigue: Yes Review of Systems All Other Systems: negative except mentioned in HPI Physical Exam Vital Signs Date Time Temp Pulse Resp B/P (MAP) Pulse Ox O2 Delivery O2 Flow Rate FiO2 11/16/17 12:59 98.2 112 20 158/92 95 Room Air 11/16/17 14:25 21 Sp02 EP Interpretation: reviewed, normal General Appearance: well appearing, no apparent distress Head: normocephalic, atraumatic Eyes: bilateral eye PERRL, bilateral eye EOMI ENT: hearing grossly normal, normal pharynx, TMs + canals normal, uvula midline Neck: full range of motion, supple, no meningismus, no bony tend Respiratory: lungs clear, normal breath sounds, no rhonchi, no respiratory distress, no retraction, no accessory muscle use Cardiovascular #1: normal peripheral pulses, no edema, no gallop, no JVD, no murmur, tachycardia Gastrointestinal: normal bowel sounds, non tender, soft, no mass, no organomegaly, non-distended, no guarding, no hernia, no pulsatile mass, no rebound Genitourinary: no CVA tenderness Musculoskeletal: normal inspection Neurologic: oriented x3, responsive, furnace mason III-XII nml as tested, motor strength/ tone normal, sensory intact Psychiatric: mood/affect normal Skin: normal color, no rash, warm/dry, palpation normal Lymphatic: normal inspection, no adenopathy Medical Decision Making Diagnostic Impression: Primary Impression: URI (upper respiratory infection) Additional Impressions: dyspnea tachycardia ER Course Patient is a fairly complex patient with multiple differential to consideration including but not limited to cardiac cardiopulmonary and vascular emergencies Suspicion for pulmonary embolism is low Patient was provided with cough medicine Breathing treatments steroids Patient has a significantly better however this shows signs of tachycardia initially Lactic acid is also elevated Patient was further hydrated and given these abnormalities were is admitted for further care Labs Test 11/16/17 13:34 11/16/17 14:26 11/16/17 17:33 White Blood Count 8.1 K/UL (4.8-10.8) Red Blood Count 4.34 M/UL (4.20-5.40) Hemoglobin 13.3 G/DL (12.0-16.0) Hematocrit 40.8 % (37.0-47.0) Mean Corpuscular Volume 94 FL (80-99) Mean Corpuscular Hemoglobin 30.6 PG (27.0-31.0) Mean Corpuscular Hemoglobin Concent 32.6 G/DL (32.0-36.0) Red Cell Distribution Width 12.2 % (11.6-14.8) Platelet Count 211 K/UL (150-450) Mean Platelet Volume 9.4 FL (6.5-10.1) Neutrophils (%) (Auto) 84.5 % (45.0-75.0) Lymphocytes (%) (Auto) 12.5 % (20.0-45.0) Monocytes (%) (Auto) 2.6 % (1.0-10.0) Eosinophils (%) (Auto) 0.0 % (0.0-3.0) Basophils (%) (Auto) 0.3 % (0.0-2.0) Sodium Level 145 MMOL/L (136-145) Potassium Level 4.6 MMOL/L (3.5-5.1) Chloride Level 107 MMOL/L (98-107) Carbon Dioxide Level 28 MMOL/L (21-32) Anion Gap 10 mmol/L (5-15) Blood Urea Nitrogen 17 mg/dL (7-18) Creatinine 1.2 MG/DL (0.55-1.30) Estimat Glomerular Filtration Rate mL/min (>60) Glucose Level 142 MG/DL (74-106) Lactic Acid Level 4.10 mmol/L (0.66-2.22) 3.10 mmol/L (0.66-2.22) Calcium Level 9.2 MG/DL (8.5-10.1) Total Bilirubin 0.4 MG/DL (0.2-1.0) Aspartate Amino Transf (AST/SGOT) 22 U/L (15-37) Alanine Aminotransferase (ALT/SGPT) 35 U/L (12-78) Alkaline Phosphatase 60 U/L (46-116) Total Creatine Kinase 84 U/L (26-308) Creatine Kinase MB 2.0 NG/ML (0.0-3.6) Creatine Kinase MB Relative Index 2.3 Troponin I 0.018 ng/mL (0.000-0.056) Pro-B-Type Natriuretic Peptide 145 pg/mL (0-125) Total Protein 7.5 G/DL (6.4-8.2) Albumin 3.7 G/DL (3.4-5.0) Globulin 3.8 g/dL Albumin/Globulin Ratio 1.0 (1.0-2.7) Lipase 145 U/L (73-393) Urine Color Pale yellow Urine Appearance Clear Urine pH 6 (4.5-8.0) Urine Specific [place] 1.015 (1.005-1.035) Urine Protein Negative (NEGATIVE) Urine Glucose (UA) Negative (NEGATIVE) Urine Ketones Negative (NEGATIVE) Urine Occult Blood Negative (NEGATIVE) Urine Nitrite Negative (NEGATIVE) Urine Bilirubin Negative (NEGATIVE) Urine Urobilinogen Normal MG/DL (0.0-1.0) Urine Leukocyte Esterase Negative (NEGATIVE) EKG Diagnostic Results Rate: tachycardiac Rhythm: other ST Segments: other Rhythm Strip Diag. Results EP Interpretation: yes Rate: 100 Rhythm: no PVC's, no ectopy, other - sinus tach Chest X-Ray Diagnostic Results Chest X-Ray Diagnostic Results : Chest X-Ray Ordered: Yes # of Views/Limited/Complete: 1 View Indication: Shortness of Breath EP Interpretation: Yes Interpretation: no consolidation, no effusion, no pneumothorax, no acute cardiopulmonary disease Impression: No acute disease Electronically Signed by: Chel Dent DO Last Vital Signs Date Time Temp Pulse Resp B/P (MAP) Pulse Ox O2 Delivery O2 Flow Rate FiO2 11/17/17 14:00 114/74 11/17/17 12:00 69 11/17/17 12:00 97.0 19 100 Room Air 11/16/17 14:25 21 Status: improved Disposition: ADMITTED INPATIENT Condition: Serious Referrals: VARGHESE HECTOR (PCP) CHEL DENT D.O. Nov 17, 2017 14:50
[2017-11-17 16:00] VITALS: BP 113/65
--- NOTE | 2017-11-17 16:00 | Cardiology Report ---
APPROVED REPORT EKG Measurement Heart [id number] Sinus tachycardia Otherwise normal ECG
[2017-11-17 20:00] VITALS: BP_SYST 105; BP_SYST 111; BP_DIAS 56
[2017-11-17] MEDS: BuPROPion XL 150mg tab ORAL SCH (21:00)
[2017-11-17] MEDS: cefTRIAXone 1 GM in NS 55 ML IVPB SCH (22:04)
[2017-11-18] VITALS: BP 113/69
[2017-11-18 04:00] VITALS: BP 102/61
[2017-11-18] MEDS: Solu-MEDROL 40mg Inj IVP SCH (06:48)
[2017-11-18] MEDS: HydrALAZINE 25mg tab ORAL SCH (06:48)
[2017-11-18 08:00] VITALS: BP 151/71
[2017-11-18] MEDS: Aspirin Baby 81mg ORAL SCH (08:41)
[2017-11-18 08:42] VITALS: BP 151/71
[2017-11-18] MEDS: Heparin 5000 units/ml inj SUBQ SCH (08:42)
[2017-11-18] MEDS: Losartan 50mg tab ORAL SCH (08:42)
[2017-11-18] MEDS ORDERED: Tubing IV Secondary IV ONE (10:19)
--- NOTE | 2017-11-18 15:50 | General Progress Note ---
Assessment/Plan Assessment/Plan IMPRESSION Asthma exacerbation sinus tachycardia hypertension cough congestion PLAN dc solumedrol dc hydration resume home meds dc home and resume meds and monitor impression, plan, and exam edited and reviewed in detail care discussed with RN Subjective Allergies: Coded Allergies: No Known Allergies (Unverified , 11/20/12) Subjective seen earlier improved and wants to go home less sob and comfortable Objective Last 24 Hour Vital Signs Date Time Temp Pulse Resp B/P (MAP) Pulse Ox O2 Delivery O2 Flow Rate FiO2 11/18/17 08:42 151/71 11/18/17 08:42 99 151/71 11/18/17 08:00 96.6 99 19 151/71 98 Room Air 11/18/17 08:00 78 11/18/17 06:48 102/61 11/18/17 04:00 71 11/18/17 04:00 98.0 71 18 102/61 98 11/18/17 00:00 97.9 75 20 113/69 97 11/18/17 00:00 76 11/17/17 22:03 111/56 11/17/17 20:00 98.4 76 18 111/56 97 11/17/17 20:00 82 11/17/17 16:00 70 11/17/17 16:00 97.1 74 19 113/65 96 Room Air Intake and Output 11/17/17 11/18/17 19:00 07:00 Intake Total 100 ml 460 ml Balance 100 ml 460 ml Intake Oral 100 ml 460 ml # Voids 3 # Bowel Movements 2 Height (Feet): 5 Height (Inches): 5.00 Weight (Pounds): 167 Objective WDWN NAD clear breath sounds bilaterally without rhonchi or wheeze [id number] without MRG NABS nontender no HSM no CCE nonfocal VARGHESE HECTOR Nov 18, 2017 15:50
--- NOTE | 2017-11-21 11:26 | Discharge Summary ---
Discharge Summary Hospital Course Date of Admission Nov 16, 2017 at 15:20 Date of Discharge Nov 18, 2017 at 10:20 Admitting Diagnosis dyspnea, tachycardia HPI Darleen Argueta is a 72 year old female who was admitted on Nov 16, 2017 at 15: 20 for Dyspnea,Tachycardia Hospital Course dc summary #[id number] Discharge Medications Continued Medications: Amlodipine Besylate* (Amlodipine Besylate*) 5 Mg Tablet 5 MG ORAL DAILY, #30 TAB Aspirin* (Aspirin*) 81 Mg Tab.chew 81 MG ORAL DAILY, TAB Bupropion Xl* (Bupropion Xl*) 150 Mg Tab.er.24h 300 MG ORAL Q24H, TAB 0 Refills Calcium Carbonate (Calcium) 600 Mg Tablet 600 MG ORAL BID PRN for HEARTBURN, #30 TAB 0 Refills Ciprofloxacin* (Cipro*) 500 Mg Tablet 500 MG PO BID, #20 TAB Clopidogrel Bisulfate* (Plavix*) 75 Mg Tablet 75 MG ORAL DAILY, #30 TAB Furosemide* (Lasix*) 20 Mg Tablet 20 MG ORAL DAILY, TAB Guaifenesin/Codeine Phos* (Robitussin Ac*) 118 Ml Liquid 5 ML ORAL Q6H PRN for For Cough, #60 ML 0 Refills Hydralazine Hcl* (Hydralazine Hcl*) 25 Mg Tablet 25 MG ORAL EVERY 8 HOURS, TAB 0 Refills Hydrocodone Bit/Acetaminophen 5-325* ([place] 5-325*) 1 Each Tablet 1 TAB PO Q6H, #10 TAB Take 1 tablet by mouth every 6 hours as needed for pain. Hydrocodone Bit/Acetaminophen 5-325* ([place] 5-325*) 1 Each Tablet 1 TAB ORAL Q6H PRN for For Pain, #20 TAB Ibuprofen* (Motrin*) 600 Mg Tablet 600 MG ORAL Q8H PRN for For Pain, #30 TAB Losartan Potassium* (Losartan Potassium*) 50 Mg Tablet 100 MG ORAL DAILY, TAB Metoprolol Succinate* (Metoprolol Succinate*) 100 Mg Tab.er.24h 100 MG ORAL DAILY, TAB Omeprazole (Omeprazole) 20 Mg Capsule.dr 20 MG ORAL DAILY, CAP Phenazopyridine Hcl* (Pyridium*) 100 Mg Tablet 100 MG PO BID, #6 TAB Take 1 tablet by mouth 3 times a day as needed for dysuria. (will turn urine orange) Potassium Chloride (Potassium Chloride) 20 Meq Packet 20 MEQ ORAL DAILY, #30 PKT 0 Refills Prednisone* (Prednisone*) 20 Mg Tablet 40 MG ORAL DAILY, #10 TAB Simvastatin (Zocor) 40 Mg Tablet 40 MG ORAL BEDTIME, TAB Triamterene (Dyrenium) 100 Mg Capsule 75 MG PO DAILY, CAP Discharge Condition Upon Discharge: stable Discharge Disposition Patient was discharged to Home (01) Discharge Diagnoses: Discharge Instructions Discharge Instructions Special Instructions I have been assigned to complete a D/C Summary on this account. I was not involved in the patient management Natalie Duke NP ([place]te[place]) Nov 21, 2017 11:26
--- NOTE | 2017-11-22 01:16 | Discharge Summary 2 SIG ---
DATE OF ADMISSION: 11/16/2017 DATE OF DISCHARGE: 11/18/2017 REASON FOR ADMISSION: 72 years old female with past medical history significant for hypertension, asthma, and CVA with right-sided weakness, presented to the emergency department for evaluation for tachycardia and shortness of breath. The patient also complained of dry cough. No chest pain. No nausea. No vomiting. She reported decreased appetite. No recent traveling. Workup in the emergency room revealed tachycardia and elevated blood pressure. Heart rate -112, blood pressure -158/98. Chest x-ray revealed no acute cardiopulmonary pathology. Troponin was negative. EKG showed sinus tachycardia, no acute ischemic changes. Urinalysis was negative for evidence of urinary tract infection. ProBNP -145. Lactic acid -4.1. No leukocytosis. Stable hemoglobin and hematocrit. Stable electrolytes. BUN -17, creatinine- 1.2. The patient was admitted with diagnoses of asthma exacerbation, hypertension, sinus tachycardia, cough, and congestion. HOSPITAL COURSE: The patient admitted. The patient was started on IV hydration. The patient started on IV steroids, which were gradually tapered. The patient was started on empiric antibiotics. Unable to obtain sputum culture, but rapid influenza screen test and blood cultures were both negative. Supplemental oxygen and pulmonary toilet provided as needed. Antitussives provided as needed. DVT prophylaxis provided. Home medications resumed. Blood pressure was controlled with multiple regimen of antihypertensive, including beta-frederic, ARB, and calcium-channel frederic. Beta-frederic improved heart rate. The patient slowly improved and was able to be discharged home on oral Medrol Dose Ashwin and inhalers. Follow up with the primary care provider. FINAL DIAGNOSES: 1. Asthma exacerbation. 2. Hypertension. 3. Sinus tachycardia resolved. 4. Cough. 5. Congestion. DISCHARGE MEDICATIONS: See medication reconciliation list. DISCHARGE INSTRUCTIONS: The patient discharged home. Follow up with primary care provider and pharmacy consultant. Rex Petersen M.D. I have been assigned to dictate discharge summary on this account and I was not involved in the patient's management. Natalie LincolnPhong shah DR: DEYANIRA JOB#: [id number] CC: TERESA
== END 2017-11-18 10:20 | disposition home or self-care (01) | DRG 203 ==
LOC: EMR 13:30 → 2E 15:20 → EDBEDREQ 15:31 → 2E 11-17 15:03
DX: J45.901 Unspecified asthma with (acute) exacerbation (principal); I10 Essential (primary) hypertension; R00.0 Tachycardia, unspecified; E78.00 Pure hypercholesterolemia, unspecified; H35.30 Unspecified macular degeneration; Z86.19 Personal history of other infectious and parasitic diseases; Z87.891 Personal history of nicotine dependence
CPT/HCPCS: 36415; 71045; 80053; 81003; 82550; 82553; 83605; 83690; 83880; 84484; 85025; 86710; 87040; 93005; 94640; 94664; 99284; 99285

== ENCOUNTER 2017-12-03 09:10 | Emergency (ER) | payer MEDICARE, MEDICAID ==
[~2017-12-03] VITALS: Ht 162.6 cm; Wt 74.8 kg
[~2017-12-03 09:10] MED LIST changes: +ASPIRIN81 MG ORAL; +BUPROPION XL150 MG ORAL; +FUROSEMIDE20 M1 ORAL; +HYDRALAZINE HCL25 M1 ORAL; +LOSARTAN POTASS50 MG ORAL; +POTASSIUM CHLO20 ME2 ORAL
[2017-12-03] MEDS ORDERED: KEFLEX500 MG ORAL (09:30)
[2017-12-03 09:34] VITALS: BP 138/80
--- NOTE | 2017-12-03 09:40 | Emergency Room Report ---
History of Present Illness General Chief Complaint: Female Urogenital Problems Source: Patient Present Illness HPI 72-year-old F with hypertension, diabetes p/w dysuria for one week. +dysuria, frequency, urgency. No hematuria. No fever chills abdominal or flank pain. States that she got a urine test done at her doctor's office, which was positive for UTI, however was not in the office and could not prescribe antibiotics Allergies: Coded Allergies: No Known Allergies (Unverified , 11/20/12) Patient History Past Medical History: see triage record Past Surgical History: none Pertinent Family History: none Now: No Reviewed Nursing Documentation: PMH: Agreed, PSxH: Agreed Nursing Documentation-PMH Past Medical History: No History, Except For Hx Cardiac Problems: Yes Hx Hypertension: Yes Hx Asthma: Yes - 5 years Hx Cancer: No Hx Gastrointestinal Problems: Yes Hx Cerebrovascular Accident: Yes - 2016 Hx Seizures: No Hx Head Trauma: Yes - Aug 2016 hit left side of head, post fall from stairs Hx Memory Loss: Yes - onset 4years ago Hx Numbness: Yes - right sided numbness Hx Fatigue: Yes Review of Systems All Other Systems: negative except mentioned in HPI Physical Exam Vital Signs Date Time Temp Pulse Resp B/P (MAP) Pulse Ox O2 Delivery O2 Flow Rate FiO2 12/03/17 09:24 98.0 93 18 142/83 96 Room Air 98.1 Sp02 EP Interpretation: reviewed, normal General Appearance: normal inspection, well appearing, no apparent distress, alert, GCS 15, non-toxic Head: normocephalic, atraumatic Eyes: bilateral eye normal inspection, bilateral eye PERRL, bilateral eye EOMI ENT: normal ENT inspection, normal pharynx, normal voice, moist mucus membranes Neck: normal inspection, full range of motion, supple Respiratory: normal inspection, lungs clear, normal breath sounds, no respiratory distress, no retraction, no wheezing, speaking full sentences, chest symmetrical Cardiovascular #1: normal inspection, regular rate, rhythm, no edema, normal capillary refill Cardiovascular #2: 2+ radial (R), 2+ radial (L) Gastrointestinal: normal inspection, non tender, soft, non-distended, no guarding Musculoskeletal: normal inspection, back normal, normal range of motion, non- tender Neurologic: normal inspection, alert, oriented x3, responsive, motor strength/ tone normal, sensory intact, normal gait, speech normal Psychiatric: normal inspection, judgement/insight normal, memory normal Skin: normal inspection, normal color, no rash, warm/dry, well hydrated, normal turgor Medical Decision Making Diagnostic Impression: Primary Impression: Dysuria ER Course 72-year-old female yo F with dysuria DDX: UTI / cystitis vs. pyelo Plan: UA, UCX ER course: Pt remains stable/nontoxic appearing in ED. UA neg but pt states it was positive, and she is also having symptoms. will rx abx Disposition: Patient will be discharged home Strict return precautions to discussed with patient such as high fever, chills, abdominal pain, nausea or vomiting. Patient verbalized understanding. Patient instructed to follow up with primary care doctor within 3 days. Patient agrees with plan. Please note that this Emergency Department Report was dictated using [employer] customs technology software, occasionally this can lead to erroneous entry secondary to interpretation by the dictation equipment Laboratory Tests Test 12/03/17 09:50 Urine Color Pale yellow Urine Appearance Clear Urine pH 6.5 (4.5-8.0) Urine Specific [place] 1.010 (1.005-1.035) Urine Protein Negative (NEGATIVE) Urine Glucose (UA) Negative (NEGATIVE) Urine Ketones Negative (NEGATIVE) Urine Occult Blood Negative (NEGATIVE) Urine Nitrite Negative (NEGATIVE) Urine Bilirubin Negative (NEGATIVE) Urine Urobilinogen Normal MG/DL (0.0-1.0) Urine Leukocyte Esterase Negative (NEGATIVE) Last Vital Signs Date Time Temp Pulse Resp B/P (MAP) Pulse Ox O2 Delivery O2 Flow Rate FiO2 12/03/17 09:24 98.0 93 18 142/83 96 Room Air 98.1 Disposition: HOME, SELF-CARE Condition: Improved Scripts Cephalexin* (KEFLEX*) 500 Mg Capsule 500 MG ORAL Q6H, #28 CAP 0 Refills Prov: Saray Galicia M.D. 12/03/17 Patient Instructions: Urinary Tract Infection Saray Galicia M.D. Dec 03, 2017 09:40
[2017-12-03 10:34] LABS: APPEARANCE,URINE CLEAR; BILIRUBIN, URINE NEGATIVE (NEGATIVE); COLOR,URINE PALE YELLOW; GLUCOSE, URINE (UA) NEGATIVE (NEGATIVE); KETONES,URINE NEGATIVE (NEGATIVE); LEUKOCYTE ESTERASE ,URINE NEGATIVE (NEGATIVE); NITRITE,URINE NEGATIVE (NEGATIVE); PH,URINE 6.5 (4.5-8.0); PROTEIN,URINE NEGATIVE (NEGATIVE); UROBILINOGEN,URINE NORMAL MG/DL (0.0-1.0)
[2017-12-03 10:47] VITALS: BP 138/80
== END 2017-12-03 10:50 | disposition home or self-care (01) ==
LOC: EMR 10:20
DX: R30.0 Dysuria (principal); I10 Essential (primary) hypertension; E11.9 Type 2 diabetes mellitus without complications; J45.909 Unspecified asthma, uncomplicated; Z86.73 Personal history of transient ischemic attack (TIA), and cerebral infarction without residual deficits
CPT/HCPCS: 81003; 99283

== ENCOUNTER 2019-02-05 13:56 | Outpatient (CLI) | payer MEDICARE, MEDICAID ==
[~2019-02-05] VITALS: Ht 165.1 cm; Wt 81.2 kg
[2019-02-05 13:08] VITALS: BP 135/95
[~2019-02-05 13:56] MED LIST changes: +KEFLEX500 MG ORAL
[2019-02-05] MEDS ORDERED: BREO ELLIPTA 11 EACH IH (16:31)
[2019-02-05] MEDS ORDERED: PROTONIX40 MG ORAL (16:31)
--- NOTE | 2019-02-05 22:15 | Consultation ---
DATE OF CONSULTATION: 02/05/2019 CONSULTING PHYSICIAN: Moncho Wagner M.D. REFERRING PHYSICIAN: Rex Petersen M.D. CHIEF COMPLAINT: Chronic GERD, history of colonic polyps, dysphagia. HISTORY OF PRESENT ILLNESS: This is a very pleasant 73-year-old female with numerous medical problems, which I will dictate in a second, who apparently had one episode of severe dysphagia to the point that she could not even drink the water. She felt that her breathing was compromised and she almost passed out. 911 was called, but by the time 911 got there, the patient felt back to normal. Since then, she is scared to drink water and she even had a swallow evaluation. We did swallow at [facility], which did not show any obvious problem with aspiration. She also had esophagram which showed evidence of severe reflux. The patient was referred to us for evaluation of those symptoms. PAST MEDICAL HISTORY: 1. Asthma. 2. Depression. 3. Hepatitis C, status post treatment with interferon. 4. Hypertension. 5. Hyperlipidemia. 6. Liver fibrosis. 7. GERD. 8. History of colonic polyps. 9. Positive MIGUEL A. ALLERGIES: No known drug allergies. MEDICATIONS: Please see medication reconciliation list. FAMILY HISTORY: Significant for diabetes and coronary artery disease. Brother had brain cancer. SOCIAL HISTORY: The patient denies any alcohol usage. She used to smoke, but quit. Denies any drug usage. REVIEW OF SYSTEMS: Ten-point review of systems was performed and pertinent positives in HPI. PHYSICAL EXAMINATION: VITAL SIGNS: Temperature 98, blood pressure is 134/95, pulse is 94, respirations 20. HEENT: Normocephalic and atraumatic. Sclerae anicteric. NECK: Supple. No evidence of lymphadenopathy. CARDIOVASCULAR: Regular rhythm. Plus S1 and S2. No obvious murmur. LUNGS: Clear to auscultation bilaterally. ABDOMEN: Positive bowel sounds. Soft, nontender. No rebound. No guarding. No peritoneal sign. EXTREMITIES: No cyanosis. No clubbing. No edema. ASSESSMENT AND PLAN: 1. Chronic GERD based on the esophagram. 2. History of colonic polyps. 3. Positive MIGUEL A and positive cardiolipin antibodies. 4. Asthma/COPD. RECOMMENDATIONS: The patient was prescribed Protonix by another physician. We will add baclofen. The patient was informed about reflux measures and was encouraged to do an endoscopy. The patient at this time wants to schedule it later when she finds out what day her daughter can take her to for the endoscopy. In terms of colonoscopy, the patient is due according to her for colonoscopy for history of polyps. We are going to plan to do endoscopy and colonoscopy at the same time. The patient wanted to do them at [facility] pending per the patient who will do or the date for which it will be scheduled. In terms of her positive MIGUEL A and positive cardiolipin antibodies, the patient apparently was seen by the financial recording clerk at [facility]. The patient was not aware of the recommendations. We will give her a copy. The patient to follow up with financial recording clerk at [facility]. I want to thank Dr. Petersen for this kind referral. Moncho Wagner M.D. DR: Ruy JOB#: [id number] CC: Rex Petersen M.D.; Fax#: [phone]
[2019-02-07] MEDS ORDERED: FLUTICASONE PRO16 G1 NASAL (16:13)
[2019-02-07] MEDS ORDERED: MIRALAX17 G2 ORAL (16:13)
[2019-02-07] MEDS ORDERED: BUPROPION XL300 MG ORAL (16:13)
[2019-02-07] MEDS ORDERED: LIPITOR20 MG ORAL (16:13)
[2019-02-07] MEDS ORDERED: AMBIEN5 MG ORAL (16:13)
[2019-02-07] MEDS ORDERED: PROAIR HFA8.5 GM INH (16:13)
[2019-02-07] MEDS ORDERED: MICARDIS40 MG ORAL (16:13)
== END 2019-02-05 15:56 | disposition home or self-care (01) ==
LOC: PAN 13:56
DX: K21.9 Gastro-esophageal reflux disease without esophagitis (principal); Z86.010 Personal history of colon polyps; J44.9 Chronic obstructive pulmonary disease, unspecified; J45.909 Unspecified asthma, uncomplicated; R13.10 Dysphagia, unspecified; Z86.19 Personal history of other infectious and parasitic diseases; I10 Essential (primary) hypertension; E78.5 Hyperlipidemia, unspecified; Z87.891 Personal history of nicotine dependence; Z83.3 Family history of diabetes mellitus; Z82.49 Family history of ischemic heart disease and other diseases of the circulatory system; Z80.8 Family history of malignant neoplasm of other organs or systems
CPT/HCPCS: 99202

== ENCOUNTER 2019-03-11 08:49 | Outpatient (CLI) | payer MEDICARE, MEDICAID ==
[~2019-03-11 08:49] MED LIST changes: +AMBIEN5 MG ORAL; +BREO ELLIPTA 11 EACH IH; +BUPROPION XL300 MG ORAL; +FLUTICASONE PRO16 G1 NASAL; +LIPITOR20 MG ORAL; +MICARDIS40 MG ORAL; +MIRALAX17 G2 ORAL; +PROAIR HFA8.5 GM INH; +PROTONIX40 MG ORAL
--- NOTE | 2019-03-11 09:55 | General Progress Note ---
Assessment/Plan Problem List: (1) Gastritis ICD Codes: K29.70 - Gastritis, unspecified, without bleeding SNOMED: 5198405 (2) Hemorrhoids ICD Codes: K64.9 - Unspecified hemorrhoids SNOMED: 15482121 (3) Constipation ICD Codes: K59.00 - Constipation, unspecified SNOMED: 07291015 (4) Hypertension ICD Codes: I10 - Essential (primary) hypertension SNOMED: 42460359 Assessment/Plan: asymptomatic at this time Colonoscopy and EGD results reviewed with the patient RTC 3 months Subjective ROS Limited/Unobtainable: Yes Allergies: Coded Allergies: No Known Allergies (Unverified , 11/20/12) Objective General Appearance: alert EENT: normal ENT inspection Cardiovascular: normal rate Respiratory/Chest: lungs clear Abdomen: normal bowel sounds, non tender, soft Extremities: non-tender Moncho Wagner MD March 11, 2019 09:55
[2019-03-11 16:12] VITALS: BP_SYST 144; BP_SYST 145; BP_DIAS 68; BP_DIAS 89
== END 2019-03-11 11:00 | disposition home or self-care (01) ==
LOC: PAN 08:49
DX: K29.70 Gastritis, unspecified, without bleeding (principal); K64.9 Unspecified hemorrhoids; K59.00 Constipation, unspecified; I10 Essential (primary) hypertension